=== PATIENT | female | born 1940 | race Caucasian/White ===

== ENCOUNTER 2017-02-17 18:15 | Inpatient (IN) | payer MEDICARE, OTHER ==
[~2017-02-17] VITALS: Ht 162.6 cm; Wt 94.0 kg
[~2017-02-17 18:15] MED LIST: CALCCHW25 CHEW; CITA40TA4 PO; LISI40TA PO; MORP15IN3 PO; MS C30TA5 PO; OMEP20CA2 PO; PERC5TAB12 PO; warfarin PO
[2017-02-17 18:16] VITALS: BP 240/107; PULSE 92; RESP 16; TEMP 99.4; O2SAT 95
[2017-02-17 18:27] VITALS: BP 193/92; PULSE 82
[2017-02-17 21:08] VITALS: BP 197/101; PULSE 80; RESP 20; O2SAT 96
[2017-02-17] MEDS ORDERED: ONDANSETRON HCL 4 MG/2 ML VIAL IV PUSH ONE (21:15)
[2017-02-17] MEDS ORDERED: MORPHINE SULFATE 4 MG/ML INJ IV PUSH ONE ×2 (21:15→23:00)
[2017-02-17] MEDS ORDERED: MORP1TAB26 PO (21:26)
[2017-02-17] MEDS ORDERED: GABA300C5 PO (21:27)
--- NOTE | 2017-02-17 21:27 | RADRPT ---
EXAM DATE/TIME: 02/17/2017 20:57 [facility] COMPARISON: CHEST SINGLE AP, March 25, 2016, 11:15. INDICATIONS : Chest pain and bilateral leg swelling. MEDICAL HISTORY : Hypertension. SURGICAL HISTORY : Hysterectomy. Cervical fusion. ENCOUNTER: Initial ACUITY: 3 days PAIN SCORE: 9/10 LOCATION: Bilateral chest FINDINGS: One lateral basilar airspace disease and small left effusion identified. Cardiomegaly and degenerativ e changes of the spine. ACDF hardware overlies the cervical spine. CONCLUSION: Bilateral airspace disease and small left effusion suspected. Toby Prater MD on February 17, 2017 at 21:26 Board Certified Radiologist. This report was verified electronically.
[2017-02-17] MEDS ORDERED: COUM3TAB PO (21:33)
[2017-02-17] MEDS ORDERED: FUROSEMIDE 40 MG/4 ML VIAL IV PUSH ONE (21:45)
--- NOTE | 2017-02-17 21:49 | PD ---
HPI Chief Complaint: Abdominal Pain Time Seen by Provider: 21:42 Travel History International Travel<30 days: No Contact w/Intl Traveler<30days: No Traveled to known affect area: No History of Present Illness HPI 76-year-old female that presents to the ED for evaluation of lower leg swelling with left worse than right as well as chest discomfort comes and goes and epigastric discomfort. The patient she's had the epigastric and right-sided chest pain on and off for some time. Patient has been worked up for this in the past with no results. Patient currently takes pain medication. Per patient she does have a history of A. fib and takes Coumadin for it. She takes lisinopril for blood pressure. She denies any chest pain at this time. Per patient she does have epigastric pain to gets worse when she takes a deep breath. Per patient is comes and goes. Per patient she's been worked up for this in the past as well with no results. She reports that for the past couple days she's been having swelling of her lower legs. Family members present with here who states that the swelling has worsened for the past couple days. She does have bruising to her left leg which is new. Unclear if she injury it as she does not remember. PFSH Past Medical History Hx Anticoagulant Therapy: Yes (COUMADIN) Depression: Yes Cardiovascular Problems: Yes (HTN/A-FIB) Diabetes: Yes Diminished Hearing: Yes (once in a while) Hypertension: Yes Medical other: Yes (obesity) Tetanus Vaccination: Unknown ?: Not Past Surgical History Hysterectomy: Yes Social History Alcohol Use: No Tobacco Use: No Substance Use: No Allergies-Medications (Allergen,Severity, Reaction): Coded Allergies: Fentanyl (Verified Allergy, Intermediate, anxiety, 10/29/16) Sulfa (Verified Allergy, Intermediate, rash, 10/29/16) Vicodin (Verified Allergy, Intermediate, itching, 10/29/16) Reported Meds & Prescriptions Reported Meds & Active Scripts Active Citalopram (Citalopram Hydrobromide) 40 Mg Tab 40 Mg PO DAILY Lisinopril 40 Mg Tab 40 Mg PO DAILY Reported Coumadin (Warfarin) 3 Mg Tab 3 Mg PO DAILY Gabapentin 300 Mg Cap 300 Mg PO HS Morphine ER (Morphine Sulfate) 60 Mg Tab 60 Mg PO BID Percocet (Oxycodone-Acetaminophen) 5-325 mg Tab 1 Tab PO TID PRN Omeprazole 20 Mg Cap 1 Cap PO DAILY Review of Systems Except as stated in HPI: all other systems reviewed are Neg Physical Exam Narrative GENERAL: SKIN: Warm and dry. HEAD: Atraumatic. Normocephalic. EYES: Pupils equal and round 4 mm reactive to light and accommodation. No scleral icterus. No injection or drainage. ENT: No nasal bleeding or discharge. Mucous membranes pink and moist. Tongue is midline. No uvula deviation. NECK: Trachea midline. No JVD. CARDIOVASCULAR: Regular rate and rhythm. No murmurs, S3, S4. Chest pain is not reproducible with touch. RESPIRATORY: No accessory muscle use. Clear to auscultation. Breath sounds equal bilaterally. GASTROINTESTINAL: Abdomen soft, non-tender, nondistended. Hepatic and splenic margins not palpable. MUSCULOSKELETAL: Extremities without clubbing, cyanosis, or edema. No obvious deformities. Full range of motion of the upper and lower extremities bilaterally. 2+ pulses bilaterally. Patient has 2+ pitting edema in the lower extremities. Left worse than right. She does have a bruise noted to the medial aspect of the left ankle. Nontender. NEUROLOGICAL: Awake and alert. No obvious cranial nerve deficits. Motor grossly within normal limits. Five out of 5 muscle strength in the arms and legs. Normal speech. PSYCHIATRIC: Appropriate mood and affect; insight and judgment normal. Data Data Last Documented VS Vital Signs Date Time Temp Pulse Resp B/P Pulse Ox O2 Delivery O2 Flow Rate FiO2 02/17/17 21:08 80 20 197/101 96 Room Air 02/17/17 18:16 99.4 Orders Electrocardiogram (02/17/17 21:01) Complete Blood Count With Diff (02/17/17 21:01) Comprehensive Metabolic Panel (02/17/17 21:01) Ckmb (Isoenzyme) Profile (02/17/17 21:01) Troponin I (02/17/17 21:01) B-Type Natriuretic Peptide (02/17/17 21:01) Prothrombin Time / Inr (Pt) (02/17/17 21:01) Act Partial Throm Time (Ptt) (02/17/17 21:01) Lipase (02/17/17 21:01) Urinalysis - C+S If Indicated (02/17/17 21:) Thyroid Stimulating Hormone (02/17/17 21:01) Chest, Single Ap (02/17/17 21:01) Iv Access Insert/Monitor (02/17/17 21:01) Ecg Monitoring (02/17/17 21:01) Oximetry (02/17/17 21:01) Us Leg Venous Doppler Bilat (02/17/17 21:01) Morphine Inj (Morphine Inj) (02/17/17 21:15) Ondansetron Inj (Zofran Inj) (02/17/17 21:15) Furosemide Inj (Lasix Inj) (02/17/17 21:45) Ct Abd/Pel W Iv Contrast(Rout) (02/17/17 22:31) Potassium Chloride (Kcl) (02/18/17 09:00) Ct Pulmonary Angiogram (02/17/17 ) Labs Laboratory Tests Test 02/17/17 02/17/17 21:30 21:37 Urine Color LIGHT-YELLOW Urine Turbidity CLEAR Urine pH 6.5 Urine Specific [place] 1.007 Urine Protein NEG mg/dL Urine Glucose (UA) NEG mg/dL Urine Ketones NEG mg/dL Urine Occult Blood TRACE Urine Nitrite NEG Urine Bilirubin NEG Urine Urobilinogen LESS THAN 2.0 MG/DL Urine Leukocyte Esterase SMALL Urine RBC 4 /hpf Urine WBC 3 /hpf Urine Squamous Epithelial <1 /hpf Cells Urine Bacteria RARE /hpf Microscopic Urinalysis Comment CULT NOT INDICATED White Blood Count 6.3 TH/MM3 Red Blood Count 3.55 MIL/MM3 Hemoglobin 11.1 GM/DL Hematocrit 33.2 % Mean Corpuscular Volume 93.5 FL Mean Corpuscular Hemoglobin 31.4 PG Mean Corpuscular Hemoglobin 33.6 % Concent Red Cell Distribution Width 15.5 % Platelet Count 222 TH/MM3 Mean Platelet Volume 9.0 FL Neutrophils (%) (Auto) 60.0 % Lymphocytes (%) (Auto) 27.9 % Monocytes (%) (Auto) 7.6 % Eosinophils (%) (Auto) 2.7 % Basophils (%) (Auto) 1.8 % Neutrophils # (Auto) 3.8 TH/MM3 Lymphocytes # (Auto) 1.8 TH/MM3 Monocytes # (Auto) 0.5 TH/MM3 Eosinophils # (Auto) 0.2 TH/MM3 Basophils # (Auto) 0.1 TH/MM3 CBC Comment DIFF FINAL Differential Comment Prothrombin Time 21.1 SEC Prothromb Time International 1.9 RATIO Ratio Activated Partial 35.7 SEC Thromboplast Time Sodium Level 144 MEQ/L Potassium Level 2.8 MEQ/L Chloride Level 109 MEQ/L Carbon Dioxide Level 29.6 MEQ/L Anion Gap 5 MEQ/L Blood Urea Nitrogen 5 MG/DL Creatinine 0.70 MG/DL Estimat Glomerular Filtration 81 ML/MIN Rate Random Glucose 103 MG/DL Calcium Level 8.9 MG/DL Total Bilirubin 1.3 MG/DL Aspartate Amino Transf 20 U/L (AST/SGOT) Alanine Aminotransferase 14 U/L (ALT/SGPT) Alkaline Phosphatase 88 U/L Total Creatine Kinase 89 U/L Troponin I LESS THAN 0.02 NG/ML B-Type Natriuretic Peptide 193 PG/ML Total Protein 6.9 GM/DL Albumin 3.5 GM/DL Lipase 39 U/L Thyroid Stimulating Hormone 1.010 uIU/ML 3rd Gen [facility] Medical Decision Making Medical Screen Exam Complete: Yes Emergency Medical Condition: Yes Medical Record Reviewed: Yes Interpretation(s) CBC & BMP Diagram 02/17/17 21:37 LFTS WNL UA negative Lipase negative BNP in the 100s Last Impressions Lower Extremity Ultrasound 02/17/172100 Signed Impressions: Service Date/Time: Friday, February 17, 2017 21:56 - CONCLUSION: 1. No definite evidence for DVT bilaterally. The posterior tibial vein on the left compresses fully however there is no documented color-flow. Toby Prater MD Chest X-Ray 02/17/172100 Signed Impressions: Service Date/Time: Friday, February 17, 2017 20:57 - CONCLUSION: Bilateral airspace disease and small left effusion suspected. Toby Prater MD Differential Diagnosis Chronic pain versus a typical chest pain versus atrial fibrillation versus CHF versus DVT versus pitting edema versus normal exam Narrative Course 76-year-old female that presents to the ED for evaluation of chest pain and lower leg edema. Patient was properly examined and was found to have signs and symptoms which appear to be consistent with possible CHF. She does have a history of this in the past. She does not take any Lasix. She does have a bruise to her left leg and left legs. On the right. Concern for DVT present. She does take Coumadin however. Labs and imaging were ordered. She was given pain medication here. Imaging still pending at the writing of this note and case signed out to my attending pending dispo. Lloyd Blair Feb 17, 2017 21:49
[2017-02-17 21:59] LABS: BACTERIA, URINE RARE /hpf; BLOOD, URINE TRACE (NEG); COMMENT (UR) CULT NOT INDICATED; CULTURE IF INDICATED CULT NOT INDICATED; GLUCOSE,URINE NEG (NEG); KETONE, URINE NEG (NEG); NITRITE,URINE NEG (NEG); PH, URINE 6.5 (5.0-8.5); SQUAMOUS EPITHELIAL CELL URINE <1 /hpf (0-5); URINE COLOR LIGHT-YELLOW (YELLW/STRAW)
[2017-02-17 21:59] LABS: AUTOMATED NEUTROPHIL # 3.8 TH/MM3 (1.8-7.7); BASOPHIL # 0.1 TH/MM3 (0-0.2); BASOPHIL % 1.8 % (0.0-2.0); EOSINOPHIL # 0.2 TH/MM3 (0-0.4); EOSINOPHIL % 2.7 % (0.0-4.0); HEMATOCRIT 33.2 % (35.0-46.0); HEMO FLAGS DIFF FINAL; LYMPH % 27.9 % (9.0-44.0); LYMPHOCYTE # 1.8 TH/MM3 (1.0-4.8); MEAN CELL VOLUME 93.5 FL (80.0-100.0); MEAN CORPUSCULAR HEMOGLOBIN 31.4 PG (27.0-34.0); MEAN CORPUSCULAR HGB CONC 33.6 % (32.0-36.0); MONO % 7.6 % (0.0-8.0); PLATELET COUNT 222 TH/MM3 (150-450); RED BLOOD COUNT 3.55 MIL/MM3 (4.00-5.30); RED CELL DISTRIBUTION WIDTH 15.5 % (11.6-17.2); WHITE BLOOD COUNT 6.3 TH/MM3 (4.0-11.0)
[2017-02-17 22:15] LABS: APTT (PATIENT) 35.7 SEC (24.3-30.1); INTERNATIONAL NORMALIZED RATIO 1.9 RATIO; PROTHROMBIN TIME - PATIENT 21.1 SEC (9.8-11.6)
--- NOTE | 2017-02-17 22:28 | RADRPT ---
EXAM DATE/TIME: 02/17/2017 21:56 [facility] COMPARISON: No previous studies available for comparison. INDICATIONS : Bilateral leg swelling. MEDICAL HISTORY : Afib. Diabetic. Hypertension. SURGICAL HISTORY : Bilateral knee.surgery. Neck surgery. Hysterectomy. ENCOUNTER: Initial ACUITY: 4 - 6 days PAIN SCORE: 9/10 LOCATION: Bilateral leg. TECHNIQUE: Venous ultrasound of the left and right leg was performed from the inguinal ligament to the proximal calf. Real-time, color Doppler and spectral tracing, compression and augmentation techniques were us ed. FINDINGS: RIGHT LEG: There is normal compressibility of the deep venous system from the inguinal region to the proximal ca lf. No echogenic clot is seen in the lumen of the common femoral, femoral, popliteal, and posterior tibial veins. There is a normal response of the venous system to proximal and distal augmentation an d respiration. LEFT LEG: There is normal compressibility of the deep venous system from the inguinal region to the proximal ca lf. No echogenic clot is seen in the lumen of the common femoral, femoral, popliteal, and posterior tibial veins. There is a normal response of the venous system to proximal and distal augmentation an d respiration. There is no flow visualized in the posterior tibial vein however it does fully compre ss. CONCLUSION: 1. No definite evidence for DVT bilaterally. The posterior tibial vein on the left compresses fully h owever there is no documented color-flow. Toby Prater MD on February 17, 2017 at 22:25 Board Certified Radiologist. This report was verified electronically.
[2017-02-17 22:37] LABS: ALKALINE PHOSPHATASE 88 U/L (45-117); ALT (GPT) 14 U/L (10-53); ANION GAP 5 MEQ/L (5-15); AST (GOT) 20 U/L (15-37); BICARBONATE 29.6 MEQ/L (21.0-32.0); BLOOD UREA NITROGEN 5 MG/DL (7-18); CHLORIDE 109 MEQ/L (98-107); CREATINE KINASE 89 U/L (26-192); GLOMERULAR FILTRATION RATE 81 ML/MIN (>89); SODIUM (NA) 144 MEQ/L (136-145); TOTAL BILIRUBIN ADULT 1.3 MG/DL (0.2-1.0)
[2017-02-17 22:40] LABS: POTASSIUM 2.8 MEQ/L (3.5-5.1)
--- NOTE | 2017-02-17 23:06 | PD ---
Data Data Last Documented VS Vital Signs Date Time Temp Pulse Resp B/P Pulse Ox O2 Delivery O2 Flow Rate FiO2 02/17/17 21:08 80 20 197/101 96 Room Air 02/17/17 18:16 99.4 Orders Electrocardiogram (02/17/17 21:01) Complete Blood Count With Diff (02/17/17 21:01) Comprehensive Metabolic Panel (02/17/17 21:01) Ckmb (Isoenzyme) Profile (02/17/17 21:01) Troponin I (02/17/17 21:) B-Type Natriuretic Peptide (02/17/17 21:01) Prothrombin Time / Inr (Pt) (02/17/17 21:01) Act Partial Throm Time (Ptt) (02/17/17 21:01) Lipase (02/17/17 21:) Urinalysis - C+S If Indicated (02/17/17 21:01) Thyroid Stimulating Hormone (02/17/17 21:01) Chest, Single Ap (02/17/17 21:01) Iv Access Insert/Monitor (02/17/17 21:01) Ecg Monitoring (02/17/17 21:01) Oximetry (02/17/17 21:01) Us Leg Venous Doppler Bilat (02/17/17 21:01) Morphine Inj (Morphine Inj) (02/17/17 21:15) Ondansetron Inj (Zofran Inj) (02/17/17 21:15) Furosemide Inj (Lasix Inj) (02/17/17 21:45) Ct Abd/Pel W Iv Contrast(Rout) (02/17/17 22:31) Potassium Chloride (Kcl) (02/18/17 09:00) Morphine Inj (Morphine Inj) (02/17/17 23:00) Iohexol 350 Inj (Omnipaque 350 Inj) (02/17/17 23:07) Potassium Chloride (Kcl) (02/18/17 00:00) Admit Order (Ed Use Only) (02/18/17 00:44) Labs Laboratory Tests Test 02/17/17 02/17/17 21:30 21:37 Urine Color LIGHT-YELLOW Urine Turbidity CLEAR Urine pH 6.5 Urine Specific [place] 1.007 Urine Protein NEG mg/dL Urine Glucose (UA) NEG mg/dL Urine Ketones NEG mg/dL Urine Occult Blood TRACE Urine Nitrite NEG Urine Bilirubin NEG Urine Urobilinogen LESS THAN 2.0 MG/DL Urine Leukocyte Esterase SMALL Urine RBC 4 /hpf Urine WBC 3 /hpf Urine Squamous Epithelial <1 /hpf Cells Urine Bacteria RARE /hpf Microscopic Urinalysis Comment CULT NOT INDICATED White Blood Count 6.3 TH/MM3 Red Blood Count 3.55 MIL/MM3 Hemoglobin 11.1 GM/DL Hematocrit 33.2 % Mean Corpuscular Volume 93.5 FL Mean Corpuscular Hemoglobin 31.4 PG Mean Corpuscular Hemoglobin 33.6 % Concent Red Cell Distribution Width 15.5 % Platelet Count 222 TH/MM3 Mean Platelet Volume 9.0 FL Neutrophils (%) (Auto) 60.0 % Lymphocytes (%) (Auto) 27.9 % Monocytes (%) (Auto) 7.6 % Eosinophils (%) (Auto) 2.7 % Basophils (%) (Auto) 1.8 % Neutrophils # (Auto) 3.8 TH/MM3 Lymphocytes # (Auto) 1.8 TH/MM3 Monocytes # (Auto) 0.5 TH/MM3 Eosinophils # (Auto) 0.2 TH/MM3 Basophils # (Auto) 0.1 TH/MM3 CBC Comment DIFF FINAL Differential Comment Prothrombin Time 21.1 SEC Prothromb Time International 1.9 RATIO Ratio Activated Partial 35.7 SEC Thromboplast Time Sodium Level 144 MEQ/L Potassium Level 2.8 MEQ/L Chloride Level 109 MEQ/L Carbon Dioxide Level 29.6 MEQ/L Anion Gap 5 MEQ/L Blood Urea Nitrogen 5 MG/DL Creatinine 0.70 MG/DL Estimat Glomerular Filtration 81 ML/MIN Rate Random Glucose 103 MG/DL Calcium Level 8.9 MG/DL Total Bilirubin 1.3 MG/DL Aspartate Amino Transf 20 U/L (AST/SGOT) Alanine Aminotransferase 14 U/L (ALT/SGPT) Alkaline Phosphatase 88 U/L Total Creatine Kinase 89 U/L Troponin I LESS THAN 0.02 NG/ML B-Type Natriuretic Peptide 193 PG/ML Total Protein 6.9 GM/DL Albumin 3.5 GM/DL Lipase 39 U/L Thyroid Stimulating Hormone 1.010 uIU/ML 3rd Gen [facility] Medical Record Reviewed: Yes Supervised Visit with CHENCHO: No Interpretation(s) Last Impressions Abdomen/Pelvis CT 02/17/172230 Signed Impressions: Service Date/Time: Friday, February 17, 2017 22:59 - CONCLUSION: 1. Small bilateral pleural effusions with bibasilar atelectasis. 2. Small hiatal hernia the GE junction. 3. Homogeneous well-defined 2.5 cm cyst along the mid body of the pancreas. This could be an old pseudocyst. No current inflammatory changes are seen associated with the pancreas. 4. Scattered diverticulosis of the sigmoid colon without inflammatory changes. 5. A few mildly dilated loops of small bowel with fluid and air. This is nonspecific and may represent an ileus. Joe Zheng MD Lower Extremity Ultrasound 02/17/172100 Signed Impressions: Service Date/Time: Friday, February 17, 2017 21:56 - CONCLUSION: 1. No definite evidence for DVT bilaterally. The posterior tibial vein on the left compresses fully however there is no documented color-flow. Toby Prater MD Chest X-Ray 02/17/172100 Signed Impressions: Service Date/Time: Friday, February 17, 2017 20:57 - CONCLUSION: Bilateral airspace disease and small left effusion suspected. Toby Prater MD Narrative Course During the course of the patients emergency department visit, the patients history, examination, and differential diagnosis were reviewed with the patient. The patient had IV access obtained and blood work sent for analysis. The patient's case was checked out to me by Hugh, the physician housekeeping assistant, at the conclusion of his shift. Please see his complete history and physical. The patient had an ECG done on arrival that shows atrial fibrillation with rate control heart rate of [address] segment elevation. The patient was initially provided morphine 4 mg IV for pain, Zofran 4 mg IV for nausea. The patient was given Lasix 40 mg IV, potassium chloride 40 mEq by mouth 1. The patients laboratory studies were reviewed and remarkable for a white count of 6.3, hemoglobin 11.1, platelets 222 with a normal differential, CMP is remarkable for a potassium of 2.8, chloride 109, BUNs 5, GFR of 81, total bilirubin 1.3, CPK 89, troponin I less than 0.02, lipase 39, TSH 1.01, BNP 193, INR 1.9. The patient is chronically anticoagulated on Coumadin for atrial fibrillation. Radiology studies were reviewed and remarkable for a chest x-ray that reveals bilateral airspace disease and small left effusions suspected. Ultrasound reveals no evidence of DVT. CT scan of the abdomen and pelvis shows evidence of an ileus, 2.5 cm cyst on the pancreas without any surrounding irritation or inflammation, bilateral pleural effusions with bibasilar atelectasis. The patients results were discussed with the patient, including the plan of care. I explained that further testing and/ or monitoring is indicated based on the patients history, examination, and/ or laboratory findings. Therefore, I recommended admission for additional evaluation. The patient expressed understanding and was agreeable with this plan. The patient was admitted to the hospital in stable condition and sent to a bed under the care of .the [facility] Hospitalist service. Physician Communication Physician Communication The patient's case was discussed with Dr. Ramirez who did agree to admit the patient for further evaluation and treatment at this time. Diagnosis Primary Impression: Pleural effusion Additional Impressions: Hypokalemia Ileus Admitting Information Admitting Physician Requests: Admit Kaye Navarrete MD Feb 17, 2017 23:06
[2017-02-17] MEDS ORDERED: IOHEXOL 350 MG/ML 10 ML VIAL (for RAD DIAG) IV ONE (23:07)
--- NOTE | 2017-02-17 23:52 | RADRPT ---
EXAM DATE/TIME: 02/17/2017 22:59 [facility] COMPARISON: No previous studies available for comparison. INDICATIONS : Epigastric pain. IV CONTRAST: 96 cc Omnipaque 350 (iohexol) IV ORAL CONTRAST: No oral contrast ingested. RADIATION DOSE: 16.49 CTDIvol (mGy) MEDICAL HISTORY : Cardiovascular disease. Hypertension. Diabetes. SURGICAL HISTORY : Hysterectomy. ENCOUNTER: Initial ACUITY: 1 day PAIN SCALE: 4/10 LOCATION: Epigastric TECHNIQUE: Volumetric scanning of the abdomen and pelvis was performed. Using automated exposure control and ad justment of the mA and/or kV according to patient size, radiation dose was kept as low as reasonably achievable to obtain optimal diagnostic quality images. DICOM format image data is available electro nically for review and comparison. FINDINGS: LOWER LUNGS: Small bilateral effusions with some bibasilar atelectasis. Moderate diffuse cardiomegaly. Small hiata l hernia. LIVER: Homogeneous density without lesion. There is no dilation of the biliary tree. No gallbladder, surgi krysten removed. Common bile duct is at the upper limits of normal 1.1 cm status post cholecystectomy. This is most likely from reservoir fact.. SPLEEN: Normal size without lesion. PANCREAS: Within normal limits. There is a 2.5 cm well-defined cyst along the mid body of the pancreas. No infl ammatory changes. KIDNEYS: Normal in size and shape. There is no mass, stone or hydronephrosis. ADRENAL GLANDS: Within normal limits. VASCULAR: There is no aortic aneurysm. Atherosclerotic changes. BOWEL/MESENTERY: The stomach, small bowel, and colon demonstrate no acute abnormality. There is some mild nonspecific dilatation of the small bowel with fluid and air. There is no free intraperitoneal air or fluid. Scat tered diverticulosis of the sigmoid colon without inflammatory changes. Appendix is nondilated. There is stool throughout the colon. ABDOMINAL WALL: Within normal limits. RETROPERITONEUM: There is no lymphadenopathy. BLADDER: No wall thickening or mass. REPRODUCTIVE: Within normal limits. INGUINAL: There is no lymphadenopathy or hernia. MUSCULOSKELETAL: Within normal limits for patient age. Evidence of previous lumbar spinal surgery with fusion. Diffuse degenerative changes. CONCLUSION: 1. Small bilateral pleural effusions with bibasilar atelectasis. 2. Small hiatal hernia the GE junction. 3. Homogeneous well-defined 2.5 cm cyst along the mid body of the pancreas. This could be an old pseu docyst. No current inflammatory changes are seen associated with the pancreas. 4. Scattered diverticulosis of the sigmoid colon without inflammatory changes. 5. A few mildly dilated loops of small bowel with fluid and air. This is nonspecific and may represen t an ileus. Joe Zheng MD on February 17, 2017 at 23:43 Board Certified Radiologist. This report was verified electronically.
[2017-02-18] VITALS (12 sets, daily range): BP systolic 106–201; BP diastolic 55–98; PULSE 70–89; RESP 13–18; TEMP 96.8–99.5; O2SAT 93–98
[2017-02-18] MEDS ORDERED: NALOXONE HCL 0.4 MG/ML AMP IV PRN (00:45)
[2017-02-18] MEDS ORDERED: POTASSIUM CHLORIDE 20 MEQ CONTROLLED RELEASE TAB PO ONE ×3 (00:45→13:00)
[2017-02-18] MEDS ORDERED: hydrALAZINE HCL 20 MG/ML VIAL IV PUSH PRN (02:00)
[2017-02-18] MEDS: MORPHINE SULFATE 4 MG/ML INJ IV PUSH PRN ×3 (03:38→20:55)
--- NOTE | 2017-02-18 05:09 | HHI.HP ---
HPI Service [facility] Primary Care Physician Kavya Pro MD Admission Diagnosis Chest pain, pulmonary edema, Ileus, hypokalemia Diagnoses: Chief Complaint: right chest pain, LLE swelling Travel History International Travel<30 Days: No Contact w/Intl Traveler <30 Da: No Traveled to Known Affected Are: No History of Present Illness Written by SAKINA Hobbs acting as scribe for [James] on 02/18/17 at 05: 07. 76 y/o female with a history of Afib, chronic back pain, and HTN presented to the ED with complaints of Right sided chest pain and LLE swelling. She states the pain and swelling has been going on for the last 2-3 weeks and slightly getting worse. She denies any trauma or recent falls. She does complain of lightheadedness every once in a while and sob with exertion. She denies a need to sleep on extra pillows, she only uses one and is able to lie flat. She denies any history of CHF, but she states she has been told she has 3 leaky valves. Denies any fever, chills, cough, sputum production, diarrhea, or dysuria. Review of Systems Except as stated in HPI: all other systems reviewed are Neg Past Family Social History Past Medical History Afib Chronic back pain HTN 3 leaky valves Past Surgical History Back surgery Bilateral knee replacement Esophageal dilation Hysterectomy Reported Medications Reported Meds & Active Scripts Active Citalopram (Citalopram Hydrobromide) 40 Mg Tab 40 Mg PO DAILY Lisinopril 40 Mg Tab 40 Mg PO DAILY Reported Coumadin (Warfarin) 3 Mg Tab 3 Mg PO DAILY Gabapentin 300 Mg Cap 300 Mg PO HS Morphine ER (Morphine Sulfate) 60 Mg Tab 60 Mg PO BID Percocet (Oxycodone-Acetaminophen) 5-325 mg Tab 1 Tab PO TID PRN Omeprazole 20 Mg Cap 1 Cap PO DAILY Allergies: Coded Allergies: Fentanyl (Verified Allergy, Intermediate, anxiety, 10/29/16) Sulfa (Verified Allergy, Intermediate, rash, 10/29/16) Vicodin (Verified Allergy, Intermediate, itching, 10/29/16) Active Ordered Medications Current Medications Medications (Trade) Dose Ordered Sig/Rose Route Start Time Stop Time Status Last Admin (NS Flush) 2 ml UNSCH PRN IV FLUSH 02/18/17 00:45 (NS Flush) 2 ml BID IV FLUSH 02/18/17 09:00 (Narcan Inj) 0.4 mg UNSCH PRN IV 02/18/17 00:45 (Reglan Inj) 5 mg Q8HR IV PUSH 02/18/17 06:00 (Apresoline Inj) 10 mg Q30M PRN IV PUSH 02/18/17 02:00 02/18/17 02:25 (Morphine Inj) 2 mg Q4H PRN IV PUSH 02/18/17 02:00 02/18/17 03:38 Family History Patient denies any family history Social History Denies any tobacco, alcohol or illicit drug use. Physical Exam Vital Signs Vital Signs Date Time Temp Pulse Resp B/P Pulse Ox O2 Delivery O2 Flow Rate FiO2 02/18/17 04:22 96.8 84 18 134/62 94 02/18/17 03:14 Room Air 02/18/17 03:12 88 18 142/67 97 Room Air 02/18/17 02:20 84 18 167/84 98 Room Air 02/18/17 01:57 201/98 02/17/17 21:08 80 20 197/101 96 Room Air 02/17/17 18:27 82 193/92 02/17/17 18:16 99.4 92 16 240/107 95 Room Air Physical Exam GENERAL: This is a well-nourished, well-developed patient, in no apparent distress. SKIN: No rashes, ecchymoses or lesions. Cool and dry. HEAD: Atraumatic. Normocephalic. EYES: Pupils equal round and reactive. Extraocular motions intact. ENT: Nose without bleeding, purulent drainage or septal hematoma. Airway patent. NECK: Trachea midline. No JVD or lymphadenopathy. CARDIOVASCULAR: Regular rate and rhythm without murmurs, gallops, or rubs. RESPIRATORY: Clear to auscultation. Breath sounds equal bilaterally. No wheezes , rales, or rhonchi. GASTROINTESTINAL: Abdomen soft, non-tender, nondistended. No hepato-splenomegaly , or palpable masses. No guarding. MUSCULOSKELETAL: LLE +2 pitting edema, RLE +1 non pitting edema. No joint tenderness, effusion, or edema noted. No calf tenderness. NEUROLOGICAL: Awake and alert. Motor and sensory grossly within normal limits. Normal speech. Laboratory Laboratory Tests Test 02/17/17 02/17/17 02/18/17 21:30 21:37 03:07 Urine Color LIGHT-YELLOW Urine Turbidity CLEAR Urine pH 6.5 Urine Specific [place] 1.007 Urine Protein NEG Urine Glucose (UA) NEG Urine Ketones NEG Urine Occult Blood TRACE Urine Nitrite NEG Urine Bilirubin NEG Urine Urobilinogen LESS THAN 2.0 Urine Leukocyte Esterase SMALL Urine RBC 4 Urine WBC 3 Urine Squamous Epithelial <1 Cells Urine Bacteria RARE Microscopic Urinalysis Comment CULT NOT INDICATED White Blood Count 6.3 Red Blood Count 3.55 Hemoglobin 11.1 Hematocrit 33.2 Mean Corpuscular Volume 93.5 Mean Corpuscular Hemoglobin 31.4 Mean Corpuscular Hemoglobin 33.6 Concent Red Cell Distribution Width 15.5 Platelet Count 222 Mean Platelet Volume 9.0 Neutrophils (%) (Auto) 60.0 Lymphocytes (%) (Auto) 27.9 Monocytes (%) (Auto) 7.6 Eosinophils (%) (Auto) 2.7 Basophils (%) (Auto) 1.8 Neutrophils # (Auto) 3.8 Lymphocytes # (Auto) 1.8 Monocytes # (Auto) 0.5 Eosinophils # (Auto) 0.2 Basophils # (Auto) 0.1 CBC Comment DIFF FINAL Differential Comment Prothrombin Time 21.1 Prothromb Time International 1.9 Ratio Activated Partial 35.7 Thromboplast Time Sodium Level 144 Potassium Level 2.8 Chloride Level 109 Carbon Dioxide Level 29.6 Anion Gap 5 Blood Urea Nitrogen 5 Creatinine 0.70 Estimat Glomerular Filtration 81 Rate Random Glucose 103 Calcium Level 8.9 Total Bilirubin 1.3 Aspartate Amino Transf 20 (AST/SGOT) Alanine Aminotransferase 14 (ALT/SGPT) Alkaline Phosphatase 88 Total Creatine Kinase 89 98 Troponin I LESS THAN 0.02 0.02 B-Type Natriuretic Peptide 193 Total Protein 6.9 Albumin 3.5 Lipase 39 Thyroid Stimulating Hormone 1.010 3rd Gen Result Diagram: 02/17/17213602/17/172136 Imaging Last Impressions Abdomen/Pelvis CT 02/17/172230 Signed Impressions: Service Date/Time: Friday, February 17, 2017 22:59 - CONCLUSION: 1. Small bilateral pleural effusions with bibasilar atelectasis. 2. Small hiatal hernia the GE junction. 3. Homogeneous well-defined 2.5 cm cyst along the mid body of the pancreas. This could be an old pseudocyst. No current inflammatory changes are seen associated with the pancreas. 4. Scattered diverticulosis of the sigmoid colon without inflammatory changes. 5. A few mildly dilated loops of small bowel with fluid and air. This is nonspecific and may represent an ileus. Joe Zheng MD Lower Extremity Ultrasound 02/17/172100 Signed Impressions: Service Date/Time: Friday, February 17, 2017 21:56 - CONCLUSION: 1. No definite evidence for DVT bilaterally. The posterior tibial vein on the left compresses fully however there is no documented color-flow. Toby Prater MD Chest X-Ray 02/17/172100 Signed Impressions: Service Date/Time: Friday, February 17, 2017 20:57 - CONCLUSION: Bilateral airspace disease and small left effusion suspected. Toby Prater MD Assessment and Plan Problem List: (1) Pleural effusion ICD Code: J90 Status: Acute (2) CHF (congestive heart failure) ICD Code: I50.9 Status: Acute (3) Hypokalemia ICD Code: E87.6 Status: Acute (4) Hypertension ICD Code: I10 Status: Chronic (5) Atrial fibrillation ICD Code: I48.91 Status: Chronic Assessment and Plan 76 y/o female with a history of Afib, chronic back pain, and HTN presented to the ED with complaints of Right sided chest pain and LLE swelling. Pleural effusion, patient with dyspnea with exertion and right sided chest pain , R/O ACS, suspect due to new onset CHF Abdominal CT reviewed and shows Small bilateral pleural effusions with bibasilar atelectasis. Small hiatal hernia the GE junction. Homogeneous well- defined 2.5 cm cyst along the mid body of the pancreas. This could be an old pseudocyst. No current inflammatory changes are seen associated with the pancreas. Scattered diverticulosis of the sigmoid colon without inflammatory changes. -Troponin negative x 2, third set pending -Monitor telemetry -Morphine IV for pain management New onset CHF, BNP 193, patient with BLE swelling Lower extremity US negative for DVT -Consult cardiology for recommendation -Lasix 40 mg given in ED, cont Lasix 20mg BID -2D echo ordered Hypokalemia, potassium 2.8 -Supplementation given, 20meq ordered daily -BMP in AM, trend and replace as needed HTN, chronic, controlled -Resume home medication Lisinopril AFIB, chronic, controlled -Resume home medication Coumadin DVT prophylaxis: Coumadin Discussed Condition With Patient, RN and ED physician Alissa Mitchell Feb 18, 2017 05:09
[2017-02-18] MEDS ORDERED: ACETAMINOPHEN 325 MG TAB PO ONE (05:15)
[2017-02-18] MEDS ORDERED: diphenhydrAMINE HCL 25 MG CAP PO ONE (05:15)
[2017-02-18] MEDS: METOCLOPRAMIDE HCL 10 MG/2 ML VIAL IV PUSH SCH ×3 (05:25→20:55)
--- NOTE | 2017-02-18 07:42 | MB ---
cc: JHONY FARLEY MD DATE OF CONSULTATION 02/18/2017 REASON FOR CONSULTATION CHF. HISTORY OF PRESENT ILLNESS Ms. Lou is a 76-year-old female who does have a history of hypertension and atrial fibrillation. She presented with multiple complaints of lower extremity edema and right-sided pain. The patient is somewhat of a vague historian but indicates that she has been having several months of right and left arm pain. She indicates that this is random and has been quite severe on the right side. She indicates her right arm and right upper quadrant have had intermittent severe pain. She also reports 2-3 weeks of shortness of breath. She has had unilateral lower extremity edema on the left. PAST MEDICAL/SURGICAL HISTORY Significant for - 1. Hypertension. 2. Atrial fibrillation. 3. Back surgery. 4. Knee replacement. 5. Hysterectomy. 6. Esophageal dilatation. CURRENT MEDICATIONS 1. Citalopram. 2. Lisinopril 40 mg a day. 3. Coumadin. 4. Gabapentin. 5. Morphine. 6. Percocet. 7. Omeprazole. ALLERGIES FENTANYL. SULFA. VICODIN. SOCIAL HISTORY The patient does not drink or smoke. FAMILY HISTORY Negative for CAD. REVIEW OF SYSTEMS Except as mentioned in the HPI, all 12 systems are negative. PHYSICAL EXAMINATION VITAL SIGNS: Initial blood pressure was 240/107. Currently it is with 134/62 with a temperature of 96.8, 84, 18. IN GENERAL: She is a morbidly obese female who is in no apparent distress. NECK: Her neck is free from JVD. LUNGS: The lungs are bilaterally clear to auscultation. CARDIOVASCULAR EXAMINATION: She has an irregularly irregular rhythm. No rubs or gallops are appreciated. ABDOMEN: The abdomen is soft. EXTREMITIES: The right lower extremity is free from edema. The left does have 1+ pedal edema. IMAGING STUDIES Lower extremity ultrasound was negative for DVT. Chest x-ray shows bilateral air space disease and possible left pleural effusion. CT shows small bilateral effusions with atelectasis. There is also a nonspecific dilation of the small bowel which may represent ileus. LAB VALUES Significant for a potassium of 2.8. Troponin of less than 0.02. BNP of 193. IMPRESSIONS Acute diastolic heart failure - The patient presented with marked hypertension with shortness of breath, unilateral edema and effusions. The patient obviously needs to have BP control. An echocardiogram has been requested. I would like to diurese her ad then hopefully get her off of the Lasix. A beta-rekha will be added. Atrial fibrillation - The patient does have reasonable rate control. Thus this does not appear to be a contributing factor at least at this point. Right-sided pain - This will be worked up by the primary team and does not appear to have a cardiac component. She specifically denies any chest pain to me. Jhony Farley M.D. MICHELLE/SSB /7:03 AM /7:32 AM
--- NOTE | 2017-02-18 08:42 | EKG ---
Date Performed: 02/18/2017 Time Performed: 04:01:56 PTAGE: 76 years EKG: ATRIAL FIBRILLATION MODERATE ST DEPRESSION ABNORMAL ECG PREVIOUS TRACING : 02/17/2017 21.51 DOCTOR: Juwan Kaiser Interpretating Date/Time 02/18/2017 08:40:51
--- NOTE | 2017-02-18 08:55 | EKG ---
Date Performed: 02/17/2017 Time Performed: 21:51:15 PTAGE: 76 years EKG: ATRIAL FIBRILLATION POSSIBLE ANTERIOR MYOCARDIAL INFARCTION ABNORMAL RHYTHM ECG PREVIOUS TRACING : 03/25/2016 16.31 DOCTOR: uJwan Kaiser Interpretating Date/Time 02/18/2017 08:54:36
[2017-02-18] MEDS ORDERED: POTASSIUM CHLORIDE 20 MEQ CONTROLLED RELEASE TAB PO SCH (09:00)
[2017-02-18] MEDS: SODIUM CHLORIDE 0.9% FLUSH 10 ML FLUSH IV FLUSH SCH ×2 (09:52→20:56)
[2017-02-18] MEDS: POTASSIUM CHLORIDE 20 MEQ CONTROLLED RELEASE TAB PO SCH (09:53)
[2017-02-18] MEDS: LISINOPRIL 20 MG TAB PO SCH (09:53)
[2017-02-18] MEDS: FUROSEMIDE 20 MG TAB PO SCH ×2 (09:53→17:49)
[2017-02-18] MEDS: PANTOPRAZOLE SOD 20 MG DELAYED RELEASE TAB PO SCH (09:54)
[2017-02-18] MEDS: CITALOPRAM HYDROBROMIDE 40 MG TAB PO SCH (09:54)
[2017-02-18] MEDS: CARVEDILOL 3.125 MG TAB PO SCH ×2 (09:54→20:56)
[2017-02-18 10:19] LABS: POTASSIUM 3.6 MEQ/L (3.5-5.1)
[2017-02-18 12:08] LABS: BICARBONATE 28.8 MEQ/L (21.0-32.0); POTASSIUM 3.6 MEQ/L (3.5-5.1)
[2017-02-18] MEDS: SODIUM CHLORIDE 0.9% FLUSH 10 ML FLUSH IV FLUSH PRN (13:48)
[2017-02-18] MEDS: WARFARIN SOD 3 MG TAB PO SCH (17:49)
[2017-02-18] MEDS: MORPHINE SULFATE 60 MG CONTROLLED RELEASE TAB PO SCH ×2 (17:49→20:47)
[2017-02-18] MEDS ORDERED: GABAPENTIN 300 MG CAP PO SCH (21:00)
[2017-02-19] VITALS (7 sets, daily range): BP systolic 106–136; BP diastolic 58–75; PULSE 59–79; RESP 17–20; TEMP 97.5–98.7; O2SAT 91–96
[2017-02-19] MEDS: METOCLOPRAMIDE HCL 10 MG/2 ML VIAL IV PUSH SCH ×2 (05:33→13:07)
[2017-02-19] MEDS: SODIUM CHLORIDE 0.9% FLUSH 10 ML FLUSH IV FLUSH PRN (05:34)
[2017-02-19 07:35] LABS: BICARBONATE 30.2 MEQ/L (21.0-32.0); POTASSIUM 3.1 MEQ/L (3.5-5.1)
[2017-02-19] MEDS ORDERED: POTASSIUM CHLORIDE 20 MEQ CONTROLLED RELEASE TAB PO ONE (07:45)
--- NOTE | 2017-02-19 08:27 | PD.CARD.PN ---
Subjective Subjective Remarks PT without complaints Objective Medications Current Medications Medications (Trade) Dose Ordered Sig/Rose Route Start Time Stop Time Status Last Admin (NS Flush) 2 ml UNSCH PRN IV FLUSH 02/18/17 00:45 02/19/17 05:34 (NS Flush) 2 ml BID IV FLUSH 02/18/17 09:00 02/18/17 20:56 (Narcan Inj) 0.4 mg UNSCH PRN IV 02/18/17 00:45 (Reglan Inj) 5 mg Q8HR IV PUSH 02/18/17 06:00 02/19/17 05:33 (Apresoline Inj) 10 mg Q30M PRN IV PUSH 02/18/17 02:00 02/18/17 02:25 (Lasix) 20 mg BID@09,18 PO 02/18/17 09:00 02/18/17 17:49 (KCl) 20 meq DAILY PO 02/18/17 09:00 02/18/17 09:53 (CeleXA) 40 mg DAILY PO 02/18/17 09:00 02/18/17 09:54 (Neurontin) 300 mg HS PO 02/18/17 21:00 02/18/17 20:56 (Coumadin) 3 mg DAILY@1600 PO 02/18/17 16:00 02/18/17 17:49 (Prinivil) 40 mg DAILY PO 02/18/17 09:00 02/18/17 09:53 (Protonix) 20 mg DAILY PO 02/18/17 09:00 02/18/17 09:54 (Coreg) 3.125 mg Q12HR PO 02/18/17 09:00 02/18/17 20:56 (Oramorph Sr) 60 mg BID PO 02/18/17 10:45 02/18/17 17:49 (Percocet 5-325 Mg) 1 tab TID PRN PO 02/19/17 08:30 UNV Vital Signs / I&O Vital Signs Date Time Temp Pulse Resp B/P Pulse Ox O2 Delivery O2 Flow Rate FiO2 02/19/17 08:00 97.9 70 20 136/73 95 02/19/17 04:09 98.7 73 17 112/65 91 02/19/17 00:01 98.6 79 17 106/58 93 7/19/17 20:04 16 02/18/17 19:44 98.6 84 18 150/70 93 02/18/17 19:31 70 02/18/17 17:47 89 136/72 94 02/18/17 16:20 78 02/18/17 16:00 99.4 76 13 142/69 94 02/18/17 12:30 99.5 80 13 123/61 94 I/O 02/18/17 02/18/17 02/18/17 02/19/17 02/19/17 02/19/17 06:59 14:59 22:59 06:59 14:59 22:59 Intake Total 120 ml Balance 120 ml Intake Oral 120 ml # Voids 2 Physical Exam GENERAL: Well developed, well nourished. No acute distress. HEENT: Jugular venous pressure is normal. CHEST: Lungs clear to auscultation bilaterally. Unlabored respiratory effort. CARDIAC: Regular rate and rhythm without S3, S4, or murmur. ABDOMEN: Soft, nontender, no hepatosplenomegaly. Bowel sounds present. EXTREMITIES: No clubbing, cyanosis, tr edema (+lymphedema- left) Laboratory Laboratory Tests Test 02/18/17 02/19/17 09:20 06:17 Sodium Level 143 MEQ/L 143 MEQ/L Potassium Level 3.6 MEQ/L 3.1 MEQ/L Chloride Level 108 MEQ/L 105 MEQ/L Carbon Dioxide Level 28.8 MEQ/L 30.2 MEQ/L Anion Gap 6 MEQ/L 8 MEQ/L Blood Urea Nitrogen 6 MG/DL 7 MG/DL Creatinine 0.81 MG/DL 0.75 MG/DL Estimat Glomerular Filtration 69 ML/MIN 75 ML/MIN Rate Random Glucose 98 MG/DL 94 MG/DL Calcium Level 8.4 MG/DL 8.3 MG/DL Magnesium Level 2.0 MG/DL Total Creatine Kinase 94 U/L Troponin I 0.02 NG/ML Assessment and Plan Assessment and Plan HTN- better on present meds Edema- left with lymphedema, multifactorial -conservative measures discussed, declines YANNI CHF- ECHO pending, likely secondary to HTN fluid and sodium restrictions AF- stable Claudia Hernandez MD Feb 19, 2017 08:27
[2017-02-19] MEDS ORDERED: oxyCODONE/ACETAMINOPHEN 5 MG/325 MG TAB PO PRN (08:30)
--- NOTE | 2017-02-19 08:33 | HHI.PR ---
Subjective Remarks Follow-up for lower extremity edema. The patient complains of chronic right hip pain, for which she is on pain management, no acute worsening. She denies any chest pain or shortness of breath. She reports good urine output. She doesn't really report any improvement in her lower extremity swelling overnight. She refuses YANNI hose, states they make her uncomfortable. She denies any difficulty ambulating. She states she tries to elevate her legs when she is at home. Objective Vitals Vital Signs Date Time Temp Pulse Resp B/P Pulse Ox O2 Delivery O2 Flow Rate FiO2 02/19/17 08:00 97.9 70 20 136/73 95 02/19/17 04:09 98.7 73 17 112/65 91 02/19/17 00:01 98.6 79 17 106/58 93 02/18/17 20:04 16 02/18/17 19:44 98.6 84 18 150/70 93 02/18/17 19:31 70 02/18/17 17:47 89 136/72 94 02/18/17 16:20 78 02/18/17 16:00 99.4 76 13 142/69 94 02/18/17 12:30 99.5 80 13 123/61 94 I/O 02/18/17 02/18/17 02/18/17 02/19/17 02/19/17 02/19/17 07:00 15:00 23:00 07:00 15:00 23:00 Intake Total 120 ml Balance 120 ml Intake Oral 120 ml # Voids 2 Result Diagram: 02/17/177 02/19/17 0617 Imaging Last Impressions Abdomen/Pelvis CT 02/17/172230 Signed Impressions: Service Date/Time: Friday, February 17, 2017 22:59 - CONCLUSION: 1. Small bilateral pleural effusions with bibasilar atelectasis. 2. Small hiatal hernia the GE junction. 3. Homogeneous well-defined 2.5 cm cyst along the mid body of the pancreas. This could be an old pseudocyst. No current inflammatory changes are seen associated with the pancreas. 4. Scattered diverticulosis of the sigmoid colon without inflammatory changes. 5. A few mildly dilated loops of small bowel with fluid and air. This is nonspecific and may represent an ileus. Joe Zheng MD Lower Extremity Ultrasound 02/17/172100 Signed Impressions: Service Date/Time: Friday, February 17, 2017 21:56 - CONCLUSION: 1. No definite evidence for DVT bilaterally. The posterior tibial vein on the left compresses fully however there is no documented color-flow. Toby rPater MD Chest X-Ray 02/17/172100 Signed Impressions: Service Date/Time: Friday, February 17, 2017 20:57 - CONCLUSION: Bilateral airspace disease and small left effusion suspected. Toby Prater MD Objective Remarks GENERAL: Well-developed well-nourished obese. In no acute distress. SKIN: Warm and dry. No lesions noted. HEENT: Normocephalic. Pupils equal and round. Mucous membranes pink and moist. CARDIOVASCULAR: Regular rate and rhythm. No murmur appreciated. RESPIRATORY: No accessory muscle use. Clear to auscultation. Breath sounds equal bilaterally. GASTROINTESTINAL: Abdomen soft, non-tender, nondistended. Bowel sounds x4. MUSCULOSKELETAL: No obvious deformities. No clubbing or cyanosis. Bilateral lower extremity edema, nonpitting on the right, 1+ on the left. No calf tenderness. NEUROLOGICAL: Awake and alert. No focal neurological deficits. Moves upper and lower extremities spontaneously. Normal speech. PSYCHIATRIC: Appropriate mood and affect; insight and judgment normal. A/P Problem List: (1) Pleural effusion ICD Code: J90 Status: Acute (2) CHF (congestive heart failure) ICD Code: I50.9 Status: Acute (3) Hypokalemia ICD Code: E87.6 Status: Acute (4) Hypertension ICD Code: I10 Status: Chronic (5) Atrial fibrillation ICD Code: I48.91 Status: Chronic Assessment and Plan 76 y/o female with a history of Afib, chronic back pain, and HTN presented to the ED with complaints of Right sided chest pain and LLE swelling. Small bilateral pleural effusion: Chest x-ray and abdominal CT shows small bilateral pleural effusion. Afebrile with no leukocytosis. -Continue diuresis as blood Chest pain: Atypical, right-sided. Reportedly patient complained of chest pain admission, resolved. ACS ruled out per protocol with unremarkable serial cardiac enzymes and EKGs. -Monitor telemetry -Cardiology on board Chronic lower extremity edema: Bilateral lower extremity edema, left worse than right. Underlying CHF versus lymphedema. Ultrasound negative for DVT. -Consulted cardiology, echocardiogram ordered, started on carvedilol -Diuresing with Lasix 20mg BID, discussed with Dr. eHrnandez, will decrease to daily at discharge. Potassium replacement with diuretics. -Refusing YANNI hose, elevate lower extremities Hypokalemia, at admission and overnight, magnesium within normal limits -Continue oral potassium replacement HTN, chronic, controlled -Continue home Lisinopril AFIB, chronic, controlled -INR 1.9, continue home Coumadin Chronic right hip/flank pain: Follows with pain management. UA negative. Abdominal/pelvis CT with no definite acute or specific changes. -Continue pain management regimen with oxycodone prn and morphine extended release DVT prophylaxis: Coumadin Discharge Planning Follow-up results of echocardiogram, discussed with cardiology, if unremarkable discharge planning to home [address] [place], echo results showed normal EF with trace MR, mild AR, mild TR. Discussed with Dr. Jensen. Results discussed with the patient's daughter. The patient's daughter is concerned about the patient's right-sided pain, doesn't feel like pain is being addressed well. I did recommend continued PCP and pain management follow-up as outpatient for possible musculoskeletal etiology of the patient's pain. Attending Statement The exam, history, and the medical decision-making described in the above note were completed with the assistance of the mid-level provider. I reviewed and agree with the findings presented. I attest that I had a [id number] encounter with the patient on the same day, and personally performed and documented my assessment and findings in the medical record. Problem Qualifiers (1) CHF (congestive heart failure): Qualified Code: I50.9 - Congestive heart failure, unspecified congestive heart failure chronicity, unspecified congestive heart failure type Gerardo Baker Feb 19, 2017 08:33 Boo Tomlinson MD Feb 20, 2017 17:19
[2017-02-19] MEDS: POTASSIUM CHLORIDE 20 MEQ CONTROLLED RELEASE TAB PO SCH (09:00)
[2017-02-19] MEDS: PANTOPRAZOLE SOD 20 MG DELAYED RELEASE TAB PO SCH (09:52)
[2017-02-19] MEDS: CITALOPRAM HYDROBROMIDE 40 MG TAB PO SCH (09:52)
[2017-02-19] MEDS: MORPHINE SULFATE 60 MG CONTROLLED RELEASE TAB PO SCH (09:52)
[2017-02-19] MEDS: FUROSEMIDE 20 MG TAB PO SCH ×2 (09:53→17:25)
[2017-02-19] MEDS: LISINOPRIL 20 MG TAB PO SCH (09:53)
[2017-02-19] MEDS: CARVEDILOL 3.125 MG TAB PO SCH (09:53)
[2017-02-19] MEDS: SODIUM CHLORIDE 0.9% FLUSH 10 ML FLUSH IV FLUSH SCH (09:54)
[2017-02-19] MEDS ORDERED: FURO20TA PO (16:21)
[2017-02-19] MEDS ORDERED: POTA10TA2 PO (16:21)
[2017-02-19] MEDS ORDERED: CARV3.125 PO (16:21)
--- NOTE | 2017-02-19 16:53 | ECHRPT ---
Indication: SOB CONCLUSIONS The left ventricular systolic function is normal with an estimated ejection fraction in the range of 55-60%. Trace mitral valve regurgitation. Mild aortic valve regurgitation. There is mild tricuspid valve regurgitation. BP: / HR: Rhythm: Sinus MEASUREMENTS (Male / Female) Normal Values Technical Quality:Good 2D ECHO LV Diastolic Diameter PLAX 4.2 cm 4.2 - 5.9 / 3.9 - 5.3 cm LV Systolic Diameter PLAX 3.2 cm IVS Diastolic Thickness 0.8 cm 0.6 - 1.0 / 0.6 - 0.9 cm LVPW Diastolic Thickness 0.7 cm 0.6 - 1.0 / 0.6 - 0.9 cm LV Relative Wall Thickness 0.4 LA Systolic Diameter LX 3.4 cm 3.0 - 4.0 / 2.7 - 3.8 cm M-MODE Aortic Root Diameter MM 2.6 cm AV Cusp Separation MM 1.9 cm DOPPLER AV Peak Velocity 175.0 cm/s AV Peak Gradient 12.3 mmHg AV Mean Gradient 6.0 mmHg AV Velocity Time Integral 42.1 cm LVOT Peak Velocity 108.0 cm/s LVOT Peak Gradient 4.7 mmHg LVOT Velocity Time Integral 24.7 cm Mitral E Point Velocity 98.7 cm/s Mitral A Point Velocity 45.9 cm/s Mitral E to A Ratio 2.2 TR Peak Velocity 307.0 cm/s TR Peak Gradient 37.7 mmHg FINDINGS LEFT VENTRICLE Normal left ventricular size. Wall thickness is normal. The left ventricular systolic function is normal with an estimated ejection fraction in the range of 55-60%. RIGHT VENTRICLE Normal right ventricular size and systolic function. LEFT ATRIUM The left atrial size is upper limits of normal. RIGHT ATRIUM The right atrial size is normal. ATRIAL SEPTUM Normal atrial septal thickness without atrial level shunting by limited color doppler interrogation. AORTA The aortic root and proximal ascending aorta are normal in size on limited imaging. MITRAL VALVE Structurally normal mitral valve. Trace mitral valve regurgitation. AORTIC VALVE Mild aortic valve regurgitation. Aortic valve sclerosis is present. TRICUSPID VALVE There is mild tricuspid valve regurgitation. There is estimated mild pulmonary hypertension present ( 48 mmHg). PULMONARY VALVE The pulmonary valve is not well visualized. VESSELS The inferior vena cava is normal in size. PERICARDIUM No pericardial effusion. Deangelo Birmingham DO (Electronically Signed) Final Date:19 February 2017 16:52
[2017-02-19] MEDS: WARFARIN SOD 3 MG TAB PO SCH (17:25)
== END 2017-02-19 20:00 | disposition home or self-care (01) | DRG 293 ==
LOC: NEPC 18:15 → NEDA 02-18 00:45 → OBSVTOIN 02-18 02:35 → NEPHCDU 02-18 04:14
PROVIDERS: ADMIT Internal Medicine; ATTEND Internal Medicine
DX: I11.0 Hypertensive heart disease with heart failure (principal); I48.2 Chronic atrial fibrillation; E11.9 Type 2 diabetes mellitus without complications; F32.9 Major depressive disorder, single episode, unspecified; I50.31 Acute diastolic (congestive) heart failure; K44.9 Diaphragmatic hernia without obstruction or gangrene; G89.29 Other chronic pain; E87.6 Hypokalemia; E66.9 Obesity, unspecified; Z68.35 Body mass index [BMI] 35.0-35.9, adult; Z79.01 Long term (current) use of anticoagulants
CPT/HCPCS: 71010; 74177; 80048; 80053; 81001; 82550; 83690; 83735; 83880; 84132; 84443; 84484; 85025; 85610; 85730; 93005; 93306; 93970; 96374; 96375; 96376; J0360; J1940; J2270; J2405; J2765; Q9967

== ENCOUNTER 2017-05-05 18:16 | Emergency (ER) | payer MEDICARE, OTHER ==
[~2017-05-05] VITALS: Ht 160 cm; Wt 90.0 kg
[~2017-05-05 18:16] MED LIST changes: -CALCCHW25 CHEW; +CARV3.125 PO; +COUM3TAB PO; +FURO20TA PO; +GABA300C5 PO; -LISI40TA PO; -MORP15IN3 PO; +MORP1TAB26 PO; -MS C30TA5 PO; +POTA10TA2 PO; -warfarin PO
[2017-05-05 18:18] VITALS: BP 211/98; PULSE 86; RESP 22; TEMP 99; O2SAT 94
--- NOTE | 2017-05-05 18:41 | PD ---
HPI Chief Complaint: Fall Time Seen by Provider: 18:48 Travel History International Travel<30 days: No Contact w/Intl Traveler<30days: No Traveled to known affect area: No History of Present Illness HPI 76-year-old female history of atrial fibrillation on Coumadin presents for evaluation after 2 mechanical falls. She reports that she fell twice last weekonce 9 days ago, 16 days ago. She reports that one of the falls was when she was attempting to clean the floor with a towel using her foot to move the tile. She reports that she slipped because of this and fell on the ground. The other fall was when she was helping the cable man outside of her house she tripped and fell on a hold. She had left side of her head against the ground. There is no loss of consciousness but she developed some ecchymosis around the left eye. This has improved. She has had persistent left-sided rib cage pain from the fall. The pain is a constant pain which is sharp and worse with movement, deep inspiration. This is the primary reason that she has come for evaluation today. She denies any neck pain, back pain, confusion or amnesia, blurred vision PFSH Past Medical History Hx Anticoagulant Therapy: Yes (COUMADIN) Arthritis: Yes Depression: Yes Cancer: No Cardiovascular Problems: Yes (HTN/A-FIB, STATES 3 LEAKING VALVES) Diabetes: No Diminished Hearing: Yes (once in a while) GERD: Yes Genitourinary: Yes (Frequency) Hiatal Hernia: Yes Hypertension: Yes Immune Disorder: No Neurologic: No Reproductive: Yes (Hysterectomy) Respiratory: No Past Surgical History Gynecologic Surgery: Yes (hysterectomy 1971) Hysterectomy: Yes Joint Replacement: Yes (bilateral knee) Social History Alcohol Use: No Tobacco Use: No Substance Use: No Allergies-Medications (Allergen,Severity, Reaction): Coded Allergies: Sulfa (Sulfonamide Antibiotics) (Unverified Allergy, Intermediate, rash, 05/05/17) acetaminophen (Unverified Allergy, Intermediate, itching, 05/05/17) fentanyl (Unverified Allergy, Intermediate, anxiety, 05/05/17) hydrocodone (Unverified Allergy, Intermediate, itching, 05/05/17) Reported Meds & Prescriptions Reported Meds & Active Scripts Active Lasix (Furosemide) 20 Mg Tab 20 Mg PO DAILY Lidocaine Patch 12 HR (Lidocaine) 5 % Patch 1 Patch TOPICAL DAILY PRN Remove patch after 12 hours Citalopram (Citalopram Hydrobromide) 40 Mg Tab 40 Mg PO DAILY Reported Coumadin (Warfarin) 1 Mg Tab 1.5 Mg PO DAILY Gabapentin 300 Mg Cap 300 Mg PO HS Morphine ER (Morphine Sulfate) 60 Mg Tab 60 Mg PO BID Percocet (Oxycodone-Acetaminophen) 5-325 mg Tab 1 Tab PO TID PRN Omeprazole 20 Mg Cap 1 Cap PO DAILY Review of Systems Except as stated in HPI: all other systems reviewed are Neg Physical Exam Narrative GENERAL: Well-nourished female in no acute distress since her questions appropriately SKIN: Warm and dry. Periorbital ecchymosis is noted. There are contusions to the left thigh, lower leg, right arm, minor abrasions the right forearm. HEAD: Skin as noted above Normocephalic. EYES: Pupils round, right eye is fixed 3 mm nonreactive to light, she reports that this is chronic. Left eye is reactive to light. Extraocular muscles are intact. No hyphema. No scleral icterus. No injection or drainage. ENT: No nasal bleeding or discharge. Mucous membranes pink and moist. NECK: Trachea midline. No JVD. CARDIOVASCULAR: Regular rate and rhythm. No murmur appreciated. RESPIRATORY: No accessory muscle use. Clear to auscultation. Breath sounds equal bilaterally. GASTROINTESTINAL: Abdomen soft, non-tender, nondistended. Hepatic and splenic margins not palpable. MUSCULOSKELETAL: No obvious deformities. Some tenderness to palpation to the left lower rib cage. No tenderness to palpation along the cervical thoracic or lumbar midline spine. No extremity deformity is noted. NEUROLOGICAL: Awake and alert. No obvious cranial nerve deficits. Motor grossly within normal limits. Normal speech. PSYCHIATRIC: Appropriate mood and affect; insight and judgment normal. Data Data Last Documented VS Vital Signs Date Time Temp Pulse Resp B/P (MAP) Pulse Ox O2 Delivery O2 Flow Rate FiO2 05/05/17 23:42 05/05/17 20:44 69 18 99 Nasal Cannula 3.00 05/05/17 18:18 99.0 Orders Orders Prothrombin Time / Inr (Pt) (05/05/17 18:41) Ct Brain W/O Iv Contrast(Rout) (05/05/17 ) Ct Facial Bones W/O Iv Cont (05/05/17 ) Ribs, Uni (W/Exp Cxr-Min 3vw) (05/05/17 ) Ice/Cold Pack (05/05/17 18:47) Tetanus/Diphtheria Tox Adult (Tetanus/Di (05/05/17 19:00) Lisinopril (Prinivil) (05/05/17 18:47) Complete Blood Count With Diff (05/05/17 19:20) Ct Abd/Pel W Iv Contrast(Rout) (05/05/17 19:20) Ct Thorax/ Chest W Iv Contrast (05/05/17 19:20) Iv Access Insert/Monitor (05/05/17 19:20) Comprehensive Metabolic Panel (05/05/17 19:20) Ct Cerv Spine W/O Contrast (05/05/17 19:23) Morphine Inj (Morphine Inj) (05/05/17 20:00) Labetalol Inj (Trandate Inj) (05/05/17 20:00) Iohexol 350 Inj (Omnipaque 350 Inj) (05/05/17 22:02) Morphine Inj (Morphine Inj) (05/05/17 22:30) Labs Laboratory Tests Test 05/05/17 18:45 05/05/17 19:43 Prothrombin Time 24.3 SEC Prothromb Time International Ratio 2.1 RATIO White Blood Count 6.7 TH/MM3 Red Blood Count 3.61 MIL/MM3 Hemoglobin 11.7 GM/DL Hematocrit 34.7 % Mean Corpuscular Volume 96.1 FL Mean Corpuscular Hemoglobin 32.3 PG Mean Corpuscular Hemoglobin Concent 33.6 % Red Cell Distribution Width 14.2 % Platelet Count 258 TH/MM3 Mean Platelet Volume 9.4 FL Neutrophils (%) (Auto) 59.0 % Lymphocytes (%) (Auto) 31.0 % Monocytes (%) (Auto) 6.3 % Eosinophils (%) (Auto) 3.4 % Basophils (%) (Auto) 0.3 % Neutrophils # (Auto) 4.0 TH/MM3 Lymphocytes # (Auto) 2.1 TH/MM3 Monocytes # (Auto) 0.4 TH/MM3 Eosinophils # (Auto) 0.2 TH/MM3 Basophils # (Auto) 0.0 TH/MM3 CBC Comment DIFF FINAL Differential Comment Blood Urea Nitrogen 7 MG/DL Creatinine 0.90 MG/DL Random Glucose 102 MG/DL Total Protein 7.5 GM/DL Albumin 3.5 GM/DL Calcium Level 9.1 MG/DL Alkaline Phosphatase 109 U/L Aspartate Amino Transf (AST/SGOT) 37 U/L Alanine Aminotransferase (ALT/SGPT) 9 U/L Total Bilirubin 0.8 MG/DL Sodium Level 137 MEQ/L Potassium Level 4.6 MEQ/L Chloride Level 106 MEQ/L Carbon Dioxide Level 22.0 MEQ/L Anion Gap 9 MEQ/L Estimat Glomerular Filtration Rate 61 ML/MIN MDM Medical Decision Making Medical Screen Exam Complete: Yes Emergency Medical Condition: Yes Medical Record Reviewed: Yes Interpretation(s) Rib x-ray CONCLUSION: 1. Deformities of the left eighth and possibly ninth ribs. The age of these deformities is not known. 2. Mild to moderate left pleural effusion. 3. Cardiomegaly. INR 2.1 CT cervical spine CONCLUSION: Degenerative changes and postoperative change as described above. An acute bony abnormality is not seen. Differential Diagnosis Contusion, rib fracture, pneumothorax, hemothorax, splenic laceration, facial fracture, intracranial hemorrhage Narrative Course 76-year-old female presents after 2 mechanical falls last week. Her primary pain is of persistent left-sided rib cage pain from the fall. On examination she also has left periorbital ecchymosis and generalized tenderness to palpation left side of her face, CT imaging of the brain and facial bones, rib x -ray been ordered. She has various contusions to the extremities as well. Her INR will be checked. She is noted to be hypertensive- she reports that she did not take her daily lisinopril dose, she will be given lisinopril 40 mg now. She reports that typically her blood pressure is "127/78." X-ray imaging reveals CONCLUSION: 1. Deformities of the left eighth and possibly ninth ribs. The age of these deformities is not known. 2. Mild to moderate left pleural effusion. 3. Cardiomegaly. CT imaging the thorax and abdomen and pelvis have been ordered. The patient will be given morphine, labetalol for persistent hypertension. Scripts Furosemide (Lasix) 20 Mg Tab 20 MG PO DAILY, #30 TAB 0 Refills Prov: Theodore Torres MD 05/05/17 Lidocaine Patch 12 HR (Lidocaine Patch 12 HR) 5 % Patch 1 PATCH TOPICAL DAILY Y for PAIN, #1 BOX 1 Refill Remove patch after 12 hours Prov: Theodore Torres MD 05/05/17 David Loving May 05, 2017 18:41
[2017-05-05] MEDS ORDERED: LISINOPRIL 20 MG TAB PO STA (18:47)
[2017-05-05] MEDS ORDERED: TETANUS/DIPHTHERIA TOXOID ADULT 0.5 ML VIAL IM ONE (19:00)
--- NOTE | 2017-05-05 19:28 | RADRPT ---
EXAM DATE/TIME: 05/05/2017 18:58 [facility] COMPARISON: No previous studies available for comparison. INDICATIONS : Fall on left side rib pain. MEDICAL HISTORY : Hypertension. SURGICAL HISTORY : None. ENCOUNTER: Initial ACUITY: 1 day PAIN SCORE: 0/10 LOCATION: Bilateral chest FINDINGS: There is a deformity at the left eighth and possibly ninth ribs. The age of these deformities is not known. There is a mild to moderate left pleural effusion. The heart size is enlarged. There is promin ence to the interstitium throughout. The right costophrenic angle is clear. Surgical hardware is seen in the cervical spine and the lumbar spine. Clips are seen in the right upper quadrant. CONCLUSION: 1. Deformities of the left eighth and possibly ninth ribs. The age of these deformities is not known. 2. Mild to moderate left pleural effusion. 3. Cardiomegaly. Riley Steel MD on May 05, 2017 at 19:18 Board Certified Radiologist. This report was verified electronically.
[2017-05-05 19:32] LABS: INTERNATIONAL NORMALIZED RATIO 2.1 RATIO; PROTHROMBIN TIME - PATIENT 24.3 SEC (9.8-11.6)
--- NOTE | 2017-05-05 19:55 | RADRPT ---
EXAM DATE/TIME: 05/05/2017 19:20 [facility] COMPARISON: No previous studies available for comparison. INDICATIONS : Trauma. Fall. RADIATION DOSE: 46.61 CTDIvol (mGy) MEDICAL HISTORY : Cardiovascular disease. Hypertension. SURGICAL HISTORY : Hysterectomy. ENCOUNTER: Initial ACUITY: 1 day PAIN SCALE: 5/10 LOCATION: cranial TECHNIQUE: Multiple contiguous axial images were obtained of the head. Using automated exposure control and adj ustment of the mA and/or kV according to patient size, radiation dose was kept as low as reasonably a chievable to obtain optimal diagnostic quality images. DICOM format image data is available electro nically for review and comparison. FINDINGS: CEREBRUM: The ventricles are normal for age. No evidence of midline shift, mass lesion, hemorrhage or acute in farction. No extra-axial fluid collections are seen. POSTERIOR FOSSA: The cerebellum and brainstem are intact. The 4th ventricle is midline. The cerebellopontine angle i s unremarkable. EXTRACRANIAL: The visualized portion of the orbits is intact. SKULL: The calvaria is intact. No evidence of skull fracture. There is fluid in the left mastoid air cells. CONCLUSION: 1. No intracranial abnormality seen. 2. Fluid in the left mastoid air cells. Riley Steel MD on May 05, 2017 at 19:52 Board Certified Radiologist. This report was verified electronically.
--- NOTE | 2017-05-05 19:56 | RADRPT ---
EXAM DATE/TIME: 05/05/2017 19:20 [facility] COMPARISON: No previous studies available for comparison. INDICATIONS : Trauma. Fall. RADIATION DOSE: 56.76 CTDIvol (mGy) MEDICAL HISTORY : Cardiovascular disease. Hypertension. SURGICAL HISTORY : Hysterectomy. ENCOUNTER: Initial ACUITY: 1 day PAIN SCORE: 5/10 LOCATION: facial TECHNIQUE: Volumetric scanning of the facial bones was performed. Using automated exposure control and adjustme nt of the mA and/or kV according to patient size, radiation dose was kept as low as reasonably achiev able to obtain optimal diagnostic quality images. DICOM format image data is available electronicall y for review and comparison. FINDINGS: ORBITS: The orbital and infraorbital osseous structures are intact. The retroconal structures have a normal configuration. No radiopaque foreign bodies are seen. NASAL BONE: The nasal bone and maxillary spine are intact ZYGOMATIC ARCHES: Symmetric without evidence of fracture. SINUSES: The maxillary, ethmoid and frontal sinuses are intact. No air-fluid levels seen. NASAL CAVITY: The nasal septum is intact and midline. The lacrimal ducts are intact. SOFT TISSUES: There is mild left periorbital soft tissue swelling. INTRACRANIAL: No intracranial air seen. CRIBIFORM PLATE: Grossly intact. CONCLUSION: No fracture seen. There is mild left periorbital soft tissue swelling. Riley Steel MD on May 05, 2017 at 19:54 Board Certified Radiologist. This report was verified electronically.
[2017-05-05] MEDS ORDERED: MORPHINE SULFATE 4 MG/ML INJ IV PUSH ONE ×2 (20:00→22:30)
[2017-05-05] MEDS ORDERED: LABETALOL HCL 100 MG/20 ML VIAL IV PUSH ONE (20:00)
[2017-05-05] MEDS ORDERED: COUM1TAB PO (20:01)
[2017-05-05 20:15] VITALS: BP 224/95; PULSE 88; RESP 20; O2SAT 99
[2017-05-05 20:24] LABS: BASOPHIL % 0.3 % (0.0-2.0); EOSINOPHIL # 0.2 TH/MM3 (0-0.4); EOSINOPHIL % 3.4 % (0.0-4.0); HEMATOCRIT 34.7 % (35.0-46.0); HEMO FLAGS DIFF FINAL; LYMPHOCYTE # 2.1 TH/MM3 (1.0-4.8); MEAN CELL VOLUME 96.1 FL (80.0-100.0); MEAN CORPUSCULAR HEMOGLOBIN 32.3 PG (27.0-34.0); MEAN CORPUSCULAR HGB CONC 33.6 % (32.0-36.0); MONO % 6.3 % (0.0-8.0); PLATELET COUNT 258 TH/MM3 (150-450); RED BLOOD COUNT 3.61 MIL/MM3 (4.00-5.30); RED CELL DISTRIBUTION WIDTH 14.2 % (11.6-17.2); WHITE BLOOD COUNT 6.7 TH/MM3 (4.0-11.0)
--- NOTE | 2017-05-05 20:24 | RADRPT ---
EXAM DATE/TIME: 05/05/2017 19:26 [facility] COMPARISON: No previous studies available for comparison. INDICATIONS : Trauma. Fall. RADIATION DOSE: 41.48 CTDIvol (mGy) MEDICAL HISTORY : Cardiovascular disease. Hypertension. SURGICAL HISTORY : Hysterectomy. Fusion, cervical. ENCOUNTER: Initial ACUITY: 1 day PAIN SCALE: 5/10 LOCATION: Neck TECHNIQUE: Volumetric scanning of the cervical spine was performed. Multiplanar reconstructions i n the sagittal, coronal and oblique axial planes were performed. Using automated exposure control a nd adjustment of the mA and/or kV according to patient size, radiation dose was kept as low as reason ably achievable to obtain optimal diagnostic quality images. DICOM format image data is available e lectronically for review and comparison. FINDINGS: VERTEBRAE: The patient has an anterior cervical fusion plate at the C4-C5 level. There does appea r to be fusion at the C5-C6 and C6-C7 disc levels. The cervical vertebral bodies are normal in heigh t. There is minimal anterior subluxation of C3 on C4 in the order of 2 to 3 mm. The craniovertebral junction is intact. The C1 ring is intact. The C1-C2 articulation is intact. The dens is intact. C2-C3: Disc space is narrowed. A significant impression on the thecal sac is not seen. The neural fo ramina are normal. There is facet hypertrophy and possible fusion seen at the right side. C3-C4: Disc demonstrates decreased height. Again noted is the anterior subluxation of C3 on C4. Th ere is bilateral facet hypertrophy being worse on the right. The neural foramina are grossly intact. C4-C5: The patient is status post fusion at this level. A significant impression on the thecal sac is not seen. There is bilateral facet hypertrophy and possibly some degree of fusion at the facet wilfrido ints. The neural foramina are grossly intact. C5-C6: The patient appears to have fusion at this disc level. A significant impression on the theca l sac is not seen. The neural foramina are normal. The patient is status post right hemilaminectomy at this level. C6-C7: The patient appears to have fusion at this disc level. A significant impression on the theca ls sac is not seen. The neural foramina are normal. There appears to be fusion at the facet joints. C7-T1: The disc demonstrates decreased height. A significant impression on the thecal sac is not se en. The neural foramina are normal. There is bilateral facet hypertrophy. CONCLUSION: Degenerative changes and postoperative change as described above. An acute bony abno rmality is not seen. Riley Steel MD on May 05, 2017 at 20:09 Board Certified Radiologist. This report was verified electronically.
[2017-05-05 20:44] VITALS: BP 169/79; PULSE 69; RESP 18; O2SAT 99
[2017-05-05 20:51] LABS: ALT (GPT) 9 U/L (10-53)
[2017-05-05 20:54] LABS: ALKALINE PHOSPHATASE 109 U/L (45-117); TOTAL BILIRUBIN ADULT 0.8 MG/DL (0.2-1.0)
[2017-05-05 20:57] LABS: ANION GAP 9 MEQ/L (5-15); AST (GOT) 37 U/L (15-37); BLOOD UREA NITROGEN 7 MG/DL (7-18); CHLORIDE 106 MEQ/L (98-107); GLOMERULAR FILTRATION RATE 61 ML/MIN (>89); POTASSIUM 4.6 MEQ/L (3.5-5.1); SODIUM (NA) 137 MEQ/L (136-145)
[2017-05-05] MEDS ORDERED: IOHEXOL 350 MG/ML 10 ML VIAL (for RAD DIAG) IVCONTRAST ONE (22:02)
[2017-05-05] MEDS ORDERED: LIDO1PAD52 TOPICAL (22:46)
[2017-05-05] MEDS ORDERED: FURO1TAB62 PO (22:46)
--- NOTE | 2017-05-05 23:04 | RADRPT ---
EXAM DATE/TIME: 05/05/2017 21:44 [facility] COMPARISON: No previous studies available for comparison. INDICATIONS : Trauma, fall one week ago. IV CONTRAST: 97 cc Omnipaque 350 (iohexol) IV ; Cumulative dose for multiple exams. RADIATION DOSE: 18.32 CTDIvol (mGy) ; Combined studies - Thorax/Abdomen/Pelvis MEDICAL HISTORY : Cardiovascular disease. Hypertension. Hernia, hiatal. SURGICAL HISTORY : Hysterectomy. ENCOUNTER: Initial ACUITY: 1 week PAIN SCALE: 6/10 LOCATION: Left chest TECHNIQUE: Volumetric scanning of the chest was performed. Using automated exposure control and adjustment of the mA and/or kV according to patient size, radiation dose was kept as low as reasonab ly achievable to obtain optimal diagnostic quality images. DICOM format image data is available gricelda ctronically for review and comparison. Follow-up recommendations for detected pulmonary nodules are based at a minimum on nodule size and pa tient risk factors according to Fleischner Society Guidelines. FINDINGS: The mediastinal structures appear intact. There are mild bilateral pleural effusions. There are accompanying areas of atelectasis or consolidation being worse at the left base. There is a mild hiatal hernia. There are some chronic-appearing endplate changes seen in the midthoracic spine . An acute fracture is not clearly identified throughout the visualized bony structures. CONCLUSION: 1. Mild bilateral pleural effusions being greater on the left. There are accompanying areas of atele ctasis or consolidation being worse on the left. 2. Mild hiatal hernia. Riley Steel MD on May 05, 2017 at 22:56 Board Certified Radiologist. This report was verified electronically.
--- NOTE | 2017-05-05 23:12 | RADRPT ---
EXAM DATE/TIME: 05/05/2017 21:44 [facility] COMPARISON: CT ABDOMEN & PELVIS W CONTRAST, February 17, 2017, 22:59. INDICATIONS : Trauma, fall one week ago. IV CONTRAST: 97 cc Omnipaque 350 (iohexol) IV ; Cumulative dose for multiple exams. ORAL CONTRAST: No oral contrast ingested. RADIATION DOSE: 18.32 CTDIvol (mGy) ; Combined studies - Thorax/Abdomen/Pelvis MEDICAL HISTORY : Hypertension. Cardiovascular disease Hernia, hiatal. SURGICAL HISTORY : Hysterectomy. ENCOUNTER: Initial ACUITY: 1 week PAIN SCALE: 3/10 LOCATION: Left abdomen TECHNIQUE: Volumetric scanning of the abdomen and pelvis was performed. Using automated exposure control and adjustment of the mA and/or kV according to patient size, radiation dose was kept as low as reasonably achievable to obtain optimal diagnostic quality images. DICOM format image data is av ailable electronically for review and comparison. FINDINGS: The liver and spleen are normal. Clips are seen in the right upper quadrant from prior cholecystectomy. There is some minimal distension of the common bile duct measuring up to 1.3 cm li juan m reflecting a reservoir phenomenon following cholecystectomy. There is fatty infiltration of the pancreas. There is a 2.5 cm focal fluid collection seen superior to the pancreas. This was present previously. There is a 1 cm area of calcification seen at the right adrenal gland region. This coul d be related to a calcification in the adrenal gland itself versus an aneurysm in this region. This is unchanged. The left adrenal gland is normal. Both kidneys demonstrate normal enhancement. Athero sclerotic calcifications are seen throughout the aorta. The aorta is normal in size. There are colo adam diverticula particularly in the sigmoid region. Significant inflammatory change is not seen. Th e pelvic structures appear grossly intact. The patient appears to be status post hysterectomy. Ther e is surgical hardware seen in the lower lumbar spine. There is degenerative change seen throughout t he lumbar spine. There are mild bilateral pleural effusions being greater on the left. The patient had a CT examinati on of the chest. CONCLUSION: 1. No acute abnormality is seen within the abdomen and pelvis. 2. Suspected mild hepatic steatosis. 3. Stable 2.5 cm cystic area seen superior to the pancreas. This could be an old pseudocyst. It is u nchanged. The patient does have atrophy of the pancreas. 4. Mild dilatation of the common bile duct likely reflecting a reservoir phenomenon following cholecy stectomy. 5. 1 cm peripherally calcified mass in the right adrenal gland region representing either an adrenal calcification or calcification of an aneurysm in this region. This is unchanged from the prior exam. 6. Colonic diverticula without significant inflammatory change. 7. Degenerative and postoperative change in the lumbar spine. Riley Setel MD on May 05, 2017 at 22:58 Board Certified Radiologist. This report was verified electronically.
--- NOTE | 2017-05-05 23:34 | PD ---
Data Data Last Documented VS Vital Signs Date Time Temp Pulse Resp B/P (MAP) Pulse Ox O2 Delivery O2 Flow Rate FiO2 05/05/17 20:44 69 18 169/79 (109) 99 Nasal Cannula 3.00 05/05/17 18:18 99.0 Orders Orders Prothrombin Time / Inr (Pt) (05/05/17 18:41) Ct Brain W/O Iv Contrast(Rout) (05/05/17 ) Ct Facial Bones W/O Iv Cont (05/05/17 ) Ribs, Uni (W/Exp Cxr-Min 3vw) (05/05/17 ) Ice/Cold Pack (05/05/17 18:47) Tetanus/Diphtheria Tox Adult (Tetanus/Di (05/05/17 19:00) Lisinopril (Prinivil) (05/05/17 18:47) Complete Blood Count With Diff (05/05/17 19:20) Ct Abd/Pel W Iv Contrast(Rout) (05/05/17 19:20) Ct Thorax/ Chest W Iv Contrast (05/05/17 19:20) Iv Access Insert/Monitor (05/05/17 19:20) Comprehensive Metabolic Panel (05/05/17 19:20) Ct Cerv Spine W/O Contrast (05/05/17 19:23) Morphine Inj (Morphine Inj) (05/05/17 20:00) Labetalol Inj (Trandate Inj) (05/05/17 20:00) Iohexol 350 Inj (Omnipaque 350 Inj) (05/05/17 22:02) Morphine Inj (Morphine Inj) (05/05/17 22:30) Labs Laboratory Tests Test 05/05/17 18:45 05/05/17 19:43 Prothrombin Time 24.3 SEC Prothromb Time International Ratio 2.1 RATIO White Blood Count 6.7 TH/MM3 Red Blood Count 3.61 MIL/MM3 Hemoglobin 11.7 GM/DL Hematocrit 34.7 % Mean Corpuscular Volume 96.1 FL Mean Corpuscular Hemoglobin 32.3 PG Mean Corpuscular Hemoglobin Concent 33.6 % Red Cell Distribution Width 14.2 % Platelet Count 258 TH/MM3 Mean Platelet Volume 9.4 FL Neutrophils (%) (Auto) 59.0 % Lymphocytes (%) (Auto) 31.0 % Monocytes (%) (Auto) 6.3 % Eosinophils (%) (Auto) 3.4 % Basophils (%) (Auto) 0.3 % Neutrophils # (Auto) 4.0 TH/MM3 Lymphocytes # (Auto) 2.1 TH/MM3 Monocytes # (Auto) 0.4 TH/MM3 Eosinophils # (Auto) 0.2 TH/MM3 Basophils # (Auto) 0.0 TH/MM3 CBC Comment DIFF FINAL Differential Comment Blood Urea Nitrogen 7 MG/DL Creatinine 0.90 MG/DL Random Glucose 102 MG/DL Total Protein 7.5 GM/DL Albumin 3.5 GM/DL Calcium Level 9.1 MG/DL Alkaline Phosphatase 109 U/L Aspartate Amino Transf (AST/SGOT) 37 U/L Alanine Aminotransferase (ALT/SGPT) 9 U/L Total Bilirubin 0.8 MG/DL Sodium Level 137 MEQ/L Potassium Level 4.6 MEQ/L Chloride Level 106 MEQ/L Carbon Dioxide Level 22.0 MEQ/L Anion Gap 9 MEQ/L Estimat Glomerular Filtration Rate 61 ML/MIN MDM Supervised Visit with CHENCHO: No Narrative Course I, Dr. Torres, have reviewed the advance practice practitioner's documentation and am in agreement, met with the patient face to face, made the diagnosis, and the medical decision making was done by me. See his note for further details. Briefly this is a 76-year-old female who is on Coumadin who is here for evaluation after having had 2 mechanical falls last week. She is complaining of left-sided rib pain and ecchymosis to her left face. Vital signs show heart rate 69, blood pressure 169/79, pulse ox 94% on room air , oral temp of 99F. CBC: WBC 6.7, hemoglobin 11.7, hematocrit 34.7, platelets 258. CMP is unremarkable. INR is 2.1. CT head: CONCLUSION: 1. No intracranial abnormality seen. 2. Fluid in the left mastoid air cells. CT cervical spine: CONCLUSION: Degenerative changes and postoperative change as described above. An acute bony abnormality is not seen. CT facial bones: CONCLUSION: No fracture seen. There is mild left periorbital soft tissue swelling. CT thorax: CONCLUSION: 1. Mild bilateral pleural effusions being greater on the left. There are accompanying areas of atelectasis or consolidation being worse on the left. 2. Mild hiatal hernia. CT abdomen pelvis: CONCLUSION: 1. No acute abnormality is seen within the abdomen and pelvis. 2. Suspected mild hepatic steatosis. 3. Stable 2.5 cm cystic area seen superior to the pancreas. This could be an old pseudocyst. It is unchanged. The patient does have atrophy of the pancreas. 4. Mild dilatation of the common bile duct likely reflecting a reservoir phenomenon following cholecystectomy. 5. 1 cm peripherally calcified mass in the right adrenal gland region representing either an adrenal calcification or calcification of an aneurysm in this region. This is unchanged from the prior exam. 6. Colonic diverticula without significant inflammatory change. 7. Degenerative and postoperative change in the lumbar spine. The patient and the patient's daughter were made aware of all findings. She is still complaining of left-sided rib pain. She has no upper respiratory symptoms , cough, or fever. I do not believe her CT thorax findings of possible opacity represents a pneumonia and is more likely atelectasis due to her small bilateral pleural effusions. She had these pleural effusions when she was admitted earlier this year and was started on low-dose Lasix which she is no longer taking. Patient states that she feels well enough and would like to go home. I believe she is stable for discharge home with outpatient follow-up with her primary care physician this week. She will be restarted on low-dose Lasix as well as given a perception for Lidoderm patches. She was informed on when to return to the emergency department. Both the patient and the patient's daughter verbalize understanding and agreement with plan. Diagnosis Primary Impression: Fall Qualified Codes: W19.XXXA - Unspecified fall, initial encounter Additional Impressions: Chest wall contusion Qualified Codes: S20.212A - Contusion of left front wall of thorax, initial encounter Bilateral pleural effusion Contusion of face Qualified Codes: S00.83XA - Contusion of other part of head, initial encounter Referrals: Primary Care Physician 3 days Additional Instruction: Follow-up with your primary care physician this week. Return to the emergency department for worsening symptoms or any other concerns. Scripts Furosemide (Lasix) 20 Mg Tab 20 MG PO DAILY, #30 TAB 0 Refills Prov: Theodroe Torres MD 05/05/17 Lidocaine Patch 12 HR (Lidocaine Patch 12 HR) 5 % Patch 1 PATCH TOPICAL DAILY Y for PAIN, #1 BOX 1 Refill Remove patch after 12 hours Prov: Theodore Torres MD 05/05/17 Disposition: 01 DISCHARGE HOME Condition: Stable Theodore Torres MD May 05, 2017 23:34
== END 2017-05-06 00:06 | disposition home or self-care (01) ==
LOC: NEPD 18:16
DX: S20.212A Contusion of left front wall of thorax, initial encounter (principal); S00.83XA Contusion of other part of head, initial encounter; J90 Pleural effusion, not elsewhere classified; I10 Essential (primary) hypertension; I48.91 Unspecified atrial fibrillation; W01.0XXA Fall on same level from slipping, tripping and stumbling without subsequent striking against object, initial encounter; Y92.009 Unspecified place in unspecified non-institutional (private) residence as the place of occurrence of the external cause; Z79.01 Long term (current) use of anticoagulants; Z23 Encounter for immunization
CPT/HCPCS: 70450; 70486; 71101; 71260; 72125; 74177; 80053; 85025; 85610; 90471; 90714; 96374; 96375; 96376; 99285; J2270; Q9967

== ENCOUNTER 2017-07-22 13:01 | Observation (INO) | payer MEDICARE, OTHER ==
[~2017-07-22] VITALS: Ht 160 cm; Wt 93.0 kg
[~2017-07-22 13:01] MED LIST changes: -CARV3.125 PO; +CITA20TA4 PO; -CITA40TA4 PO; +CLON0.5T PO; -COUM3TAB PO; -FURO20TA PO; +HUMIBIDDM PO; -MORP1TAB26 PO; +MS C15TA7 PO; -POTA10TA2 PO
[2017-07-22 13:28] VITALS: BP 145/68; PULSE 76; RESP 16; TEMP 99.1; O2SAT 96
[2017-07-22] MEDS ORDERED: SODIUM CHLORIDE 0.9% FLUSH 10 ML FLUSH IVF PRN (13:45)
--- NOTE | 2017-07-22 13:56 | PD ---
HPI Chief Complaint: Abnormal Results Time Seen by Provider: 13:26 Travel History International Travel<30 days: No Contact w/Intl Traveler<30days: No Traveled to known affect area: No History of Present Illness HPI 77-year-old female with recent diagnosis of myelodysplastic anemia, seen earlier today by Dr. Norowod, the oncologist, and told to come in here due to her low hematocrit and hemoglobin. Patient has history of CHF as well as chronic pedal edema. She feels weak and short of breath but denies chest pain, but has chronic lower extremity pain well as low back pain for which she is on narcotics in the nursing facility. Patient has had multiple lower extremity ultrasounds according to the daughter who is here without previous signs of DVT. The daughter states that her mother tends to get confused when her hematocrit is low. She states she reportedly with Dr. Norwood wanted her to get 3 units of blood. She cannot remember the number of the hematocrit. Patient is allergic to sulfa, acetaminophen, fentanyl, hydrocodone, and quetiapine. PFSH Past Medical History Hx Anticoagulant Therapy: Yes (COUMADIN) Arthritis: Yes Atrial Fibrillation: Yes Depression: Yes Heart Rhythm Problems: Yes Cancer: Yes (MDS) Cardiovascular Problems: Yes (HTN/A-FIB, STATES 3 LEAKING VALVES) Diabetes: No Diminished Hearing: Yes (once in a while) Endocrine: No Gastrointestinal Disorders: Yes (Diverticulosis noted 02/17/17) GERD: Yes Genitourinary: Yes (Frequency) Hiatal Hernia: Yes Hypertension: Yes Immune Disorder: No Implanted Vascular Access Dvce: Yes Musculoskeletal: Yes (CHRONIC PAIN) Neurologic: Yes (NEUROPATHY) Psychiatric: Yes Reproductive: Yes (Hysterectomy) Respiratory: Yes (PN) Past Surgical History Gynecologic Surgery: Yes (hysterectomy 1971) Hysterectomy: Yes Joint Replacement: Yes (bilateral knee) Other Surgery: Yes Social History Alcohol Use: No Tobacco Use: No Substance Use: No Allergies-Medications (Allergen,Severity, Reaction): Coded Allergies: Sulfa (Sulfonamide Antibiotics) (Unverified Allergy, Intermediate, rash, 07/22/17) acetaminophen (Unverified Allergy, Intermediate, itching, 07/22/17) fentanyl (Unverified Allergy, Intermediate, anxiety, 07/22/17) hydrocodone (Unverified Allergy, Intermediate, itching, 07/22/17) quetiapine (Verified Allergy, Unknown, Twitching, 07/22/17) Reported Meds & Prescriptions Reported Meds & Active Scripts Active Reported Citalopram (Citalopram Hydrobromide) 20 Mg Tab 20 Mg PO DAILY Clonazepam 0.5 Mg Tab 0.5 Mg PO BID Ms Contin (Morphine Sulfate) 15 Mg Tab 30 Mg PO BID Mucinex DM (Dextromethorphan-Guaifenesin) 30-600 Mg Tab 2 Tab PO BID PRN Gabapentin 300 Mg Cap 300 Mg PO HS Percocet (Oxycodone-Acetaminophen) 5-325 mg Tab 1 Tab PO TID PRN Omeprazole 20 Mg Cap 1 Cap PO DAILY Review of Systems ROS Limitations: Poor Historian, Other: (patient somewhat confused.) Except as stated in HPI: all other systems reviewed are Neg General / Constitutional: No: Fever Eyes: No: Visual changes HENT: No: Headaches Cardiovascular: Positive: Dyspnea on exertion, Edema (chronic lower extremity) , No: Chest Pain or Discomfort, Palpitations, Irregular Rhythm, Tachycardia, Diaphoresis, Syncope, Varicosities, Cyanosis, Varicosities, Phlebitis, Claudication Respiratory: No: Cough, Shortness of Breath, Wheezing Gastrointestinal: No: Nausea, Vomiting, Diarrhea, Abdominal Pain Genitourinary: No: Dysuria Musculoskeletal: No: Pain Skin: No Rash Neurologic: No: Weakness Psychiatric: No: Depression Endocrine: No: Polydipsia Hematologic/Lymphatic: No: Easy Bruising Physical Exam Narrative GENERAL: Patient appears in mild distress. SKIN: Warm and dry. Moderate pallor. Somewhat decreased turgor. HEAD: Atraumatic. Normocephalic. EYES: Pupils equal and round. No scleral icterus. No injection or drainage. ENT: No nasal bleeding or discharge. Mucous membranes pink and moist. Pharynx is clear. Airway is patent. NECK: Trachea midline. Supple nontender. CARDIOVASCULAR: Regular rate and rhythm. RESPIRATORY: No accessory muscle use. Crackles to both bases to auscultation. Breath sounds equal bilaterally. GASTROINTESTINAL: Abdomen soft, non-tender, nondistended. Hepatic and splenic margins not palpable. MUSCULOSKELETAL: Extremities without clubbing, cyanosis, with bilateral 2+ pitting edema. No obvious deformities. NEUROLOGICAL: Awake and alert. No obvious cranial nerve deficits. Motor grossly within normal limits. Five out of 5 muscle strength in the arms and legs. Normal speech. PSYCHIATRIC: Appropriate mood and affect; insight and judgment normal. Data Data Last Documented VS Vital Signs Date Time Temp Pulse Resp B/P (MAP) Pulse Ox O2 Delivery O2 Flow Rate FiO2 07/22/17 14:46 93 Room Air 07/22/17 13:28 99.1 76 16 Orders Orders Electrocardiogram (07/22/17 13:43) Complete Blood Count With Diff (07/22/17 13:43) Comprehensive Metabolic Panel (07/22/17 13:43) Magnesium (Mg) (07/22/17 13:43) B-Type Natriuretic Peptide (07/22/17 13:43) Act Partial Throm Time (Ptt) (07/22/17 13:43) Prothrombin Time / Inr (Pt) (07/22/17 13:43) Urinalysis - C+S If Indicated (07/22/17 13:43) Ecg Monitoring (07/22/17 13:43) Iv Access Insert/Monitor (07/22/17 13:43) Oximetry (07/22/17 13:43) Sodium Chloride 0.9% Flush (Ns Flush) (07/22/17 13:45) Type And Screen (07/22/17 13:43) Diet Heart Healthy (07/22/17 Dinner) Chest, Single Ap (07/22/17 14:40) Red Blood Cells (Rbc) (07/22/17 14:42) Sodium Chlor 0.9% 250 Ml Inj (Ns 250 Ml (07/22/17 14:45) Place In Observation (07/22/17 ) Vital Signs (Adult) Q4H (07/22/17 15:39) Activity Oob With Assistance (07/22/17 15:39) Dope Maintenance Worker / Telemetry .CONTINUOUS (07/22/17 15:39) Sodium Chloride 0.9% Flush (Ns Flush) (07/22/17 15:45) Sodium Chloride 0.9% Flush (Ns Flush) (07/22/17 21:00) Basic Metabolic Panel (Bmp) (07/23/17 06:00) Complete Blood Count With Diff (07/23/17 06:00) Pt Request For Service (07/22/17 15:39) Case Management Consult (07/22/17 15:39) Naloxone Inj (Narcan Inj) (07/22/17 15:45) Consult Hematology (07/22/17 ) Admit Order (Ed Use Only) (07/22/17 15:39) Labs Laboratory Tests Test 07/22/17 13:45 White Blood Count 4.7 TH/MM3 Red Blood Count 2.37 MIL/MM3 Hemoglobin 7.7 GM/DL Hematocrit 22.2 % Mean Corpuscular Volume 93.7 FL Mean Corpuscular Hemoglobin 32.6 PG Mean Corpuscular Hemoglobin Concent 34.8 % Red Cell Distribution Width 16.1 % Platelet Count 100 TH/MM3 Mean Platelet Volume 11.8 FL Neutrophils (%) (Auto) 15.4 % Lymphocytes (%) (Auto) 44.6 % Monocytes (%) (Auto) 19.3 % Eosinophils (%) (Auto) 15.1 % Basophils (%) (Auto) 5.6 % Neutrophils # (Auto) 0.7 TH/MM3 Lymphocytes # (Auto) 2.1 TH/MM3 Monocytes # (Auto) 0.9 TH/MM3 Eosinophils # (Auto) 0.7 TH/MM3 Basophils # (Auto) 0.3 TH/MM3 CBC Comment AUTO DIFF Differential Total Cells Counted 100 Neutrophils % (Manual) 11 % Band Neutrophils % 1 % Lymphocytes % 48 % Monocytes % 9 % Eosinophils % 16 % Basophils % 14 % Neutrophils # (Manual) 0.6 TH/MM3 Myelocytes 1 % Differential Comment FINAL DIFF MANUAL Platelet Estimate LOW Platelet Morphology Comment ENLARGED Tear Drop Cells 1+ Ovalocytes 1+ Prothrombin Time 14.0 SEC Prothromb Time International Ratio 1.4 RATIO Activated Partial Thromboplast Time 22.6 SEC Blood Urea Nitrogen 21 MG/DL Creatinine 1.63 MG/DL Random Glucose 96 MG/DL Total Protein 5.6 GM/DL Albumin 2.5 GM/DL Calcium Level 8.1 MG/DL Magnesium Level 1.6 MG/DL Alkaline Phosphatase 96 U/L Aspartate Amino Transf (AST/SGOT) 20 U/L Alanine Aminotransferase (ALT/SGPT) 10 U/L Total Bilirubin 1.2 MG/DL Sodium Level 136 MEQ/L Potassium Level 3.5 MEQ/L Chloride Level 104 MEQ/L Carbon Dioxide Level 23.9 MEQ/L Anion Gap 8 MEQ/L Estimat Glomerular Filtration Rate 31 ML/MIN B-Type Natriuretic Peptide 167 PG/ML MDM Medical Decision Making Medical Screen Exam Complete: Yes Emergency Medical Condition: Yes Medical Record Reviewed: Yes Differential Diagnosis Symptomatic anemia. Mild dysplastic anemia. CHF. Narrative Course Patient appears stable at time of exam. Labs ordered including CBC, CMP, PT PTT and INR, BNP, and type and screen is ordered. EKG and chest x-ray ordered. EKG shows atrial fibrillation without acute findings. This is reviewed with Dr. Rees. Chest x-ray is unremarkable for acute findings. Cardiomegaly is noted. Labs show hemoglobin of 7.7, hematocrit of 22.2. Platelets are 100. Coags show PT of 14.0 with an INR of 1.4. APTT is 22.6. CMP significant for BUN of 21, creatinine 1.63, GFR 31. ProBNP is 167. Patient discussed with Dr. Rees who recommends admission for 1 unit of blood. Observation admission is recommended with consult to Dr. Norwood. Diagnosis Primary Impression: Symptomatic anemia Additional Impression: Chronic pain Qualified Codes: G89.4 - Chronic pain syndrome Admitting Information Admitting Physician Requests: Observation Condition: Stable Tha Varma Jul 22, 2017 13:56
[2017-07-22 14:21] LABS: AUTOMATED NEUTROPHIL # 0.7 TH/MM3 (1.8-7.7); BASOPHIL # 0.3 TH/MM3 (0-0.2); BASOPHIL % 5.6 % (0.0-2.0); EOSINOPHIL # 0.7 TH/MM3 (0-0.4); EOSINOPHIL % 15.1 % (0.0-4.0); HEMATOCRIT 22.2 % (35.0-46.0); LYMPH % 44.6 % (9.0-44.0); LYMPHOCYTE # 2.1 TH/MM3 (1.0-4.8); MEAN CELL VOLUME 93.7 FL (80.0-100.0); MEAN CORPUSCULAR HEMOGLOBIN 32.6 PG (27.0-34.0); MEAN CORPUSCULAR HGB CONC 34.8 % (32.0-36.0); MONO % 19.3 % (0.0-8.0); NEUT % 15.4 % (16.0-70.0); PLATELET COUNT 100 TH/MM3 (150-450); RED BLOOD COUNT 2.37 MIL/MM3 (4.00-5.30); RED CELL DISTRIBUTION WIDTH 16.1 % (11.6-17.2); WHITE BLOOD COUNT 4.7 TH/MM3 (4.0-11.0)
[2017-07-22 14:22] LABS: HEMO FLAGS AUTO DIFF
[2017-07-22 14:34] LABS: APTT (PATIENT) 22.6 SEC (24.3-30.1); INTERNATIONAL NORMALIZED RATIO 1.4 RATIO
[2017-07-22 14:43] LABS: ALKALINE PHOSPHATASE 96 U/L (45-117); TOTAL BILIRUBIN ADULT 1.2 MG/DL (0.2-1.0)
[2017-07-22] MEDS ORDERED: SODIUM CHLOR 0.9% 250 ML INJ 250 ML IV ONE (14:45)
[2017-07-22 14:46] VITALS: O2SAT 93
[2017-07-22 14:48] LABS: ALT (GPT) 10 U/L (10-53); ANION GAP 8 MEQ/L (5-15); AST (GOT) 20 U/L (15-37); BICARBONATE 23.9 MEQ/L (21.0-32.0); BLOOD UREA NITROGEN 21 MG/DL (7-18); CHLORIDE 104 MEQ/L (98-107); GLOMERULAR FILTRATION RATE 31 ML/MIN (>89); MAGNESIUM 1.6 MG/DL (1.5-2.5); SODIUM (NA) 136 MEQ/L (136-145)
[2017-07-22 14:49] LABS: POTASSIUM 3.5 MEQ/L (3.5-5.1)
[2017-07-22 15:18] LABS: BANDS 1 % (0-6); BASOPHILS 14 % (0-2); EOSINOPHILS 16 % (0-4); MYELOCYTES 1 % (0-0); NEUTROPHIL # MANUAL DIFF 0.6 TH/MM3 (1.8-7.7); POLYS (SEG NEUTROPHILS) 11 % (16-70); WBC DIFF SAMPLE 100
[2017-07-22 15:19] LABS: OVALOCYTES 1+ (NORMAL); PLATELET ESTIMATE SMEAR LOW (NORMAL); PLATELET MORPHOLOGY ENLARGED (NORMAL); SCAN/DIFF FINAL DIFF MANUAL; TEARDROP RBCS 1+ (NORMAL)
--- NOTE | 2017-07-22 15:42 | RADRPT ---
EXAM DATE/TIME: 07/22/2017 15:04 [facility] COMPARISON: CHEST SINGLE AP, February 17, 2017, 20:57. INDICATIONS : Short of breath. MEDICAL HISTORY : Cardiovascular disease. Hypertension hiatal hernia SURGICAL HISTORY : Hysterectomy. ENCOUNTER: Initial ACUITY: 1 day PAIN SCORE: 0/10 LOCATION: Bilateral chest FINDINGS: A single view of the chest demonstrates mild interstitial prominence possibly representing some degre e of vascular congestion or volume overload. Left basilar consolidation with right basilar atelectasi s. Probable bilateral pleural effusions, left greater than right. Heart size is prominent. Anterior f ixation of lower cervical spine. Degenerative spurring of the dorsal spine CONCLUSION: 1. Cardiomegaly with some interstitial prominence possibly representing some degree of vascular conge stion or volume overload. 2. Left basilar consolidation with right basilar atelectasis and probable bilateral pleural effusions . Billy Conrad MD on July 22, 2017 at 15:38 Board Certified Radiologist. This report was verified electronically.
[2017-07-22] MEDS ORDERED: SODIUM CHLORIDE 0.9% FLUSH 10 ML FLUSH IV FLUSH PRN (15:45)
[2017-07-22] MEDS ORDERED: NALOXONE HCL 0.4 MG/ML AMP IV PUSH PRN (15:45)
--- NOTE | 2017-07-22 16:13 | PD ---
Data Data Last Documented VS Vital Signs Date Time Temp Pulse Resp B/P (MAP) Pulse Ox O2 Delivery O2 Flow Rate FiO2 07/22/17 14:46 93 Room Air 07/22/17 13:28 99.1 76 16 Orders Orders Electrocardiogram (07/22/17 13:43) Complete Blood Count With Diff (07/22/17 13:43) Comprehensive Metabolic Panel (07/22/17 13:43) Magnesium (Mg) (07/22/17 13:43) B-Type Natriuretic Peptide (07/22/17 13:43) Act Partial Throm Time (Ptt) (07/22/17 13:43) Prothrombin Time / Inr (Pt) (07/22/17 13:43) Urinalysis - C+S If Indicated (07/22/17 13:43) Ecg Monitoring (07/22/17 13:43) Iv Access Insert/Monitor (07/22/17 13:43) Oximetry (07/22/17 13:43) Sodium Chloride 0.9% Flush (Ns Flush) (07/22/17 13:45) Type And Screen (07/22/17 13:43) Vascular Access Team Consult/P PRN (07/22/17 14:40) Vascular Poc Ultrasound (07/22/17 ) Diet Heart Healthy (07/22/17 Dinner) Chest, Single Ap (07/22/17 14:40) Red Blood Cells (Rbc) (07/22/17 14:42) Blood Product Administration (07/22/17 14:42) Sodium Chlor 0.9% 250 Ml Inj (Ns 250 Ml (07/22/17 14:45) Place In Observation (07/22/17 ) Vital Signs (Adult) Q4H (07/22/17 15:39) Activity Oob With Assistance (07/22/17 15:39) Line Appliance Assembler / Telemetry .CONTINUOUS (07/22/17 15:39) Sodium Chloride 0.9% Flush (Ns Flush) (07/22/17 15:45) Sodium Chloride 0.9% Flush (Ns Flush) (07/22/17 21:00) Basic Metabolic Panel (Bmp) (07/23/17 06:00) Complete Blood Count With Diff (07/23/17 06:00) Pt Request For Service (07/22/17 15:39) Case Management Consult (07/22/17 15:39) Naloxone Inj (Narcan Inj) (07/22/17 15:45) Consult Hematology (07/22/17 ) Admit Order (Ed Use Only) (07/22/17 15:39) Labs Laboratory Tests Test 07/22/17 13:45 White Blood Count 4.7 TH/MM3 Red Blood Count 2.37 MIL/MM3 Hemoglobin 7.7 GM/DL Hematocrit 22.2 % Mean Corpuscular Volume 93.7 FL Mean Corpuscular Hemoglobin 32.6 PG Mean Corpuscular Hemoglobin Concent 34.8 % Red Cell Distribution Width 16.1 % Platelet Count 100 TH/MM3 Mean Platelet Volume 11.8 FL Neutrophils (%) (Auto) 15.4 % Lymphocytes (%) (Auto) 44.6 % Monocytes (%) (Auto) 19.3 % Eosinophils (%) (Auto) 15.1 % Basophils (%) (Auto) 5.6 % Neutrophils # (Auto) 0.7 TH/MM3 Lymphocytes # (Auto) 2.1 TH/MM3 Monocytes # (Auto) 0.9 TH/MM3 Eosinophils # (Auto) 0.7 TH/MM3 Basophils # (Auto) 0.3 TH/MM3 CBC Comment AUTO DIFF Differential Total Cells Counted 100 Neutrophils % (Manual) 11 % Band Neutrophils % 1 % Lymphocytes % 48 % Monocytes % 9 % Eosinophils % 16 % Basophils % 14 % Neutrophils # (Manual) 0.6 TH/MM3 Myelocytes 1 % Differential Comment FINAL DIFF MANUAL Platelet Estimate LOW Platelet Morphology Comment ENLARGED Tear Drop Cells 1+ Ovalocytes 1+ Prothrombin Time 14.0 SEC Prothromb Time International Ratio 1.4 RATIO Activated Partial Thromboplast Time 22.6 SEC Blood Urea Nitrogen 21 MG/DL Creatinine 1.63 MG/DL Random Glucose 96 MG/DL Total Protein 5.6 GM/DL Albumin 2.5 GM/DL Calcium Level 8.1 MG/DL Magnesium Level 1.6 MG/DL Alkaline Phosphatase 96 U/L Aspartate Amino Transf (AST/SGOT) 20 U/L Alanine Aminotransferase (ALT/SGPT) 10 U/L Total Bilirubin 1.2 MG/DL Sodium Level 136 MEQ/L Potassium Level 3.5 MEQ/L Chloride Level 104 MEQ/L Carbon Dioxide Level 23.9 MEQ/L Anion Gap 8 MEQ/L Estimat Glomerular Filtration Rate 31 ML/MIN B-Type Natriuretic Peptide 167 PG/ML [facility] Supervised Visit with CHENCHO: Yes Narrative Course The history, exam, and medical decision-making in the associated midlevel provider note were completed with my assistance. I reviewed and agree with the findings presented. I attest that I had a [id number] encounter with the patient on the same day, and personally performed and documented my assessment and findings in the medical record. *My assessment and Findings: This is a 77-year-old female who has a recent diagnosis of myelodysplastic syndrome who had a biopsy at [facility] who presents to the emergency department with increasing shortness of breath and generalized weakness. I spoke to Dr. Reed her primary care physician who sent her from her [facility] for transfusion and admission. The patient evidently has been increasingly symptomatic and Dr. Reed checked her hemoglobin twice this week and it's been 7.1 and 7.2. She did transfuse her two units a week and a half ago when she's already decreased her hemoglobin. She's been trying to get an outpatient appointment with Dr. Norwood but she is concerned that she's deteriorating and she recommended that the patient be admitted for blood transfusion and hematology consultation. On exam the patient is frail, fatigued appearing and her hemoglobin is 7.8. Patient will be admitted for a unit of blood and hematology consultation. Diagnosis Primary Impression: Symptomatic anemia Additional Impression: Chronic pain Qualified Codes: G89.4 - Chronic pain syndrome Condition: Stable Milayd Rees MD Jul 22, 2017 16:13
[2017-07-22 16:42] VITALS: BP 147/68; PULSE 75; RESP 22; TEMP 98; O2SAT 92
--- NOTE | 2017-07-22 20:11 | HHI.HP ---
HPI Service [facility] Primary Care Physician Unknown Admission Diagnosis Symptomatic Anemia/SOB Diagnoses: Travel History International Travel<30 Days: No Contact w/Intl Traveler <30 Da: No Traveled to Known Affected Are: No History of Present Illness History from patient, daughter at the bedside, ER PA, and review of medical records. was sent by rehab doc for transfusion denies chest pains/sob/dizziness/ syncope but daughter stated pt has been weak, almost passing out at times, not participating in therapy, slept most of days hx of MDS recent diagnosis has had transfusions prior was given 2 units before as outpatient at infusion therapy Center but then she was called at the [facility] saying that pt cannot get outpatient infusion today as ordered by Dr Lynn because it was ordered as 3 units and was told to come to ER to be admitted for transfusion no blood in urine or stool but was nauseous no vomiting No other symptoms Review of Systems Except as stated in HPI: all other systems reviewed are Neg Past Family Social History Past Medical History chf- not on water pills afib chronic anticoagulation on coumadin - but coumadin may have been on hold at the rehab ckd esophageal narrowing- needed stretching MDS Past Surgical History esophageal stretching back sx neck sx 2 knee replaced cholecystectomy many others on emr Allergies: Coded Allergies: Sulfa (Sulfonamide Antibiotics) (Unverified Allergy, Intermediate, rash, 07/22/17) acetaminophen (Unverified Allergy, Intermediate, itching, 07/22/17) fentanyl (Unverified Allergy, Intermediate, anxiety, 07/22/17) hydrocodone (Unverified Allergy, Intermediate, itching, 07/22/17) quetiapine (Verified Allergy, Unknown, Twitching, 07/22/17) Family History none that she knows of Social History denies smoking/ etoh / drugs Physical Exam Vital Signs Vital Signs Date Time Temp Pulse Resp B/P (MAP) Pulse Ox O2 Delivery O2 Flow Rate FiO2 07/22/17 16:43 07/22/17 16:42 98.0 75 22 147/68 (94) 92 07/22/17 14:46 93 Room Air 07/22/17 13:28 99.1 76 16 145/68 (93) 96 Room Air Physical Exam GENERAL: This is a well-nourished, well-developed patient, in no apparent distress. SKIN: No rashes, ecchymoses or lesions. Cool and dry. HEAD: Atraumatic. Normocephalic. No temporal or scalp tenderness. EYES: No scleral icterus. No injection or drainage. ENT: Nose without bleeding, purulent drainage or septal hematoma.Airway patent. NECK: Trachea midline. No JVD. Supple, nontender, no meningeal signs. CARDIOVASCULAR: Regular rate and rhythm without murmurs, gallops, or rubs. RESPIRATORY: Clear to auscultation. Breath sounds equal bilaterally. No wheezes , rales, or rhonchi. GASTROINTESTINAL: Abdomen soft, non-tender, nondistended. No guarding. MUSCULOSKELETAL: Extremities without clubbing, cyanosis, or edemaNo calf tenderness. NEUROLOGICAL: Awake and alert. Motor and sensory grossly within normal limits. Normal speech. Laboratory Laboratory Tests Test 07/22/17 13:45 White Blood Count 4.7 Red Blood Count 2.37 Hemoglobin 7.7 Hematocrit 22.2 Mean Corpuscular Volume 93.7 Mean Corpuscular Hemoglobin 32.6 Mean Corpuscular Hemoglobin Concent 34.8 Red Cell Distribution Width 16.1 Platelet Count 100 Mean Platelet Volume 11.8 Neutrophils (%) (Auto) 15.4 Lymphocytes (%) (Auto) 44.6 Monocytes (%) (Auto) 19.3 Eosinophils (%) (Auto) 15.1 Basophils (%) (Auto) 5.6 Neutrophils # (Auto) 0.7 Lymphocytes # (Auto) 2.1 Monocytes # (Auto) 0.9 Eosinophils # (Auto) 0.7 Basophils # (Auto) 0.3 CBC Comment AUTO DIFF Differential Total Cells Counted 100 Neutrophils % (Manual) 11 Band Neutrophils % 1 Lymphocytes % 48 Monocytes % 9 Eosinophils % 16 Basophils % 14 Neutrophils # (Manual) 0.6 Myelocytes 1 Differential Comment FINAL DIFF MANUAL Platelet Estimate LOW Platelet Morphology Comment ENLARGED Tear Drop Cells 1+ Ovalocytes 1+ Prothrombin Time 14.0 Prothromb Time International Ratio 1.4 Activated Partial Thromboplast Time 22.6 Blood Urea Nitrogen 21 Creatinine 1.63 Random Glucose 96 Total Protein 5.6 Albumin 2.5 Calcium Level 8.1 Magnesium Level 1.6 Alkaline Phosphatase 96 Aspartate Amino Transf (AST/SGOT) 20 Alanine Aminotransferase (ALT/SGPT) 10 Total Bilirubin 1.2 Sodium Level 136 Potassium Level 3.5 Chloride Level 104 Carbon Dioxide Level 23.9 Anion Gap 8 Estimat Glomerular Filtration Rate 31 B-Type Natriuretic Peptide 167 Result Diagram: 07/22/175 07/22/17 1345 Caprini VTE Risk Assessment Caprini VTE Risk Assessment: Mod/High Risk (score >= 2) Caprini Risk Assessment Model Point Value = 1 Point Value = 2 Point Value = 3 Point Value = 5 Age 41-60 Minor surgery BMI > 25 kg/m2 Swollen legs Varicose veins or History of unexplained or recurrent spontaneous Oral contraceptives or hormone replacement Sepsis (< 1 month) Serious lung disease, including pneumonia (< 1 month) Abnormal pulmonary function Acute myocardial infarction Congestive heart failure (< 1 month) History of inflammatory bowel disease Medical patient at bed rest Age 61-74 Arthroscopic surgery Major open surgery (> 45 min) Laparoscopic surgery (> 45 min) Malignancy Confined to bed (> 72 hours) Immobilizing plaster cast Central venous access Age >= 75 History of VTE Family history of VTE Factor V Leiden Prothrombin [id number] Lupus anticoagulant Anticardiolipin antibodies Elevated serum homocysteine Heparin-induced thrombocytopenia Other congenital or acquired thrombophilia Stroke (< 1 month) Elective arthroplasty Hip, pelvis, or leg fracture Acute spinal cord injury (< 1 month) Prophylaxis Regimen Total Risk Factor Score Risk Level Prophylaxis Regimen 0-1 Low Early ambulation 2 Moderate Order ONE of the following: *Sequential Compression Device (SCD) *Heparin 5000 units SQ BID 3-4 Higher Order ONE of the following medications: *Heparin 5000 units SQ TID *Enoxaparin/Lovenox 40 mg SQ daily (WT < 150 kg, CrCl > 30 mL/min) *Enoxaparin/Lovenox 30 mg SQ daily (WT < 150 kg, CrCl > 10-29 mL/min) *Enoxaparin/Lovenox 30 mg SQ BID (WT < 150 kg, CrCl > 30 mL/min) AND/OR *Sequential Compression Device (SCD) 5 or more Highest Order ONE of the following medications: *Heparin 5000 units SQ TID (Preferred with Epidurals) *Enoxaparin/Lovenox 40 mg SQ daily (WT < 150 kg, CrCl > 30 mL/min) *Enoxaparin/Lovenox 30 mg SQ daily (WT < 150 kg, CrCl > 10-29 mL/min) *Enoxaparin/Lovenox 30 mg SQ BID (WT < 150 kg, CrCl > 30 mL/min) AND *Sequential Compression Device (SCD) Assessment and Plan Assessment and Plan Impression: symptomatic anemia MDS chf- not on water pills per daughter report afib chronic anticoagulation on coumadin - but coumadin may have been on hold at the rehab ckd esophageal narrowing- needed stretching MDS Plan: transfuse 3 units heme consult . Patient's daughter really wants to talk to the oncologist regarding her MDS and its management. Orders have been written for nursing staff to let the oncologist know about this. lasix in between transfusions resume home meds DVT prophylaxis with SCD/ambulation Discussed Condition With Patient, her daughter, ER Mercedes Plaza MD Jul 22, 2017 20:11
[2017-07-22] MEDS ORDERED: oxyCODONE/ACETAMINOPHEN 5 MG/325 MG TAB PO PRN (20:15)
[2017-07-22] MEDS ORDERED: FUROSEMIDE 20 MG/2 ML VIAL IV PUSH ONE (20:15)
[2017-07-22] MEDS ORDERED: GABAPENTIN 300 MG CAP PO SCH (21:00)
[2017-07-22] MEDS: MORPHINE SULFATE 15 MG CONTROLLED RELEASE TAB PO SCH (21:20)
[2017-07-22 22:59] VITALS: BP 130/60; PULSE 75; RESP 18; TEMP 98.3; O2SAT 98
[2017-07-22] MEDS: SODIUM CHLORIDE 0.9% FLUSH 10 ML FLUSH IV FLUSH SCH (23:28)
[2017-07-22 23:36] VITALS: BP 138/60; PULSE 78; RESP 16; TEMP 96.3
[2017-07-22 23:56] VITALS: BP 122/58; PULSE 74; RESP 18; TEMP 96.3; O2SAT 98
[2017-07-23] VITALS (13 sets, daily range): BP systolic 111–146; BP diastolic 56–77; PULSE 66–78; RESP 16–20; TEMP 96.1–99.9; O2SAT 93–100
[2017-07-23] MEDS ORDERED: PANTOPRAZOLE SOD 20 MG DELAYED RELEASE TAB PO SCH (09:00)
[2017-07-23] MEDS ORDERED: CITALOPRAM HYDROBROMIDE 20 MG TAB PO SCH (09:00)
[2017-07-23] MEDS: MORPHINE SULFATE 15 MG CONTROLLED RELEASE TAB PO SCH (09:27)
[2017-07-23] MEDS: SODIUM CHLORIDE 0.9% FLUSH 10 ML FLUSH IV FLUSH SCH (09:27)
--- NOTE | 2017-07-23 13:29 | HHI.PR ---
Subjective Remarks Follow-up for symptomatically anemia Patient has no complaints. Deny any chest pain, shortness of breathing, fatigue , lightheadedness or dizziness. She stated she feels much better. Patient already transfused. She stated that she has good urine output. Objective Vitals Vital Signs Date Time Temp Pulse Resp B/P (MAP) Pulse Ox O2 Delivery O2 Flow Rate FiO2 07/23/17 12:18 98.5 71 20 123/62 (82) 100 07/23/17 11:26 98.2 68 17 99 07/23/17 09:48 73 18 122/58 98 07/23/17 08:20 97.8 73 18 142/62 98 07/23/17 07:41 96.6 76 18 135/72 (93) 99 07/23/17 07:32 96.6 76 18 135/72 99 07/23/17 07:32 96.6 76 18 135/72 99 07/23/17 05:40 97.9 78 18 146/77 (100) 93 07/23/17 03:57 96.3 72 16 113/65 100 07/23/17 03:40 96.1 66 16 138/61 100 07/23/17 01:15 99.9 66 18 111/56 (74) 99 07/22/17 23:56 96.3 74 18 122/58 98 07/22/17 23:36 96.3 78 16 138/60 07/22/17 22:59 98.3 75 18 130/60 (83) 98 07/22/17 16:43 07/22/17 16:42 98.0 75 22 147/68 (94) 92 07/22/17 14:46 93 Room Air 07/22/17 13:28 99.1 76 16 145/68 (93) 96 Room Air I/O 07/22/17 07/22/17 07/22/17 07/23/17 07/23/17 07/23/17 07:00 15:00 23:00 07:00 15:00 23:00 Intake Total 445 ml 830 ml Output Total 1150 ml Balance 445 ml -320 ml Intake Packed Cells 400 ml 800 ml Blood Product IV Normal Saline Flush 45 ml 30 ml Output Urine Total 1150 ml # Voids 1 Result Diagram: 07/22/17 1345 07/22/17 1345 Objective Remarks GENERAL: in NAD CARDIOVASCULAR: Regular rate and rhythm without murmurs, gallops, or rubs. RESPIRATORY: Breath sounds equal bilaterally. No accessory muscle use. GASTROINTESTINAL: Abdomen soft, non-tender, nondistended. MUSCULOSKELETAL: No cyanosis, or edema. BACK: Nontender without obvious deformity. No CVA tenderness. Medications and IVs Current Medications Sodium Chloride (NS Flush) 2 ml UNSCH PRN IVF FLUSH AFTER USING IV ACCESS; Start 07/22/17 at 13:45; Stop 07/22/17 at 17:18; Status DC Sodium Chloride 250 ml @ 15 mls/hr ONCE ONCE IV Last administered on 23:29; Start 07/22/17 at 14:45; Stop 07/23/17 at 07:24; Status DC Sodium Chloride (NS Flush) 2 ml UNSCH PRN IV FLUSH FLUSH AFTER USING IV ACCESS ; Start 07/22/17 at 15:45 Sodium Chloride (NS Flush) 2 ml BID IV FLUSH Last administered on 07/22/17 23 :28; Start 07/22/17 at 21:00 Naloxone HCl (Narcan Inj) 0.4 mg UNSCH PRN IV PUSH SEE LABEL COMMENTS; Start 07/22/17 at 15:45 Furosemide (Lasix Inj) 20 mg ONCE ONCE IV PUSH Last administered on 03:29; Start 07/22/17 at 20:15; Stop 07/22/17 at 20:34; Status DC Citalopram Hydrobromide (CeleXA) 20 mg DAILY PO Last administered on 09:27; Start 07/23/17 at 09:00 Gabapentin (Neurontin) 300 mg HS PO Last administered on 07/22/17 21:20; Start 07/22/17 at 21:00 Morphine Sulfate (Oramorph Sr) 30 mg BID PO Last administered on 07/23/17 09: 27; Start 07/22/17 at 21:00 Oxycodone/ Acetaminophen (Percocet 5-325 Mg) 1 tab TID PRN PO PAIN SCALE 1-10 ; Start 07/22/17 at 20:15 Pantoprazole Sodium (Protonix) 20 mg DAILY PO Last administered on 07/23/17 09:27; Start 07/23/17 at 09:00 A/P Assessment and Plan 77-year-old female who presented with symptomatic anemia Symptomatic anemia -Hemoglobin 7.7 on admission. Pending posttransfusion hemoglobin. -Status post transfused 3 units packed red blood cells. -Symptoms improved after transfusion. -[employer]inner consulted. Renal insufficiency -Most recent creatinine 0.9 on 05/05/2017. Today creatinine 1.63. -Will repeat creatinine. Patient does have a history of CHF. Will need to be cautious with fluid. She did receive Lasix between transfusion. Angela Gifford MD Jul 23, 2017 13:29
[2017-07-23 13:32] LABS: AUTOMATED NEUTROPHIL # 0.1 TH/MM3 (1.8-7.7); BASOPHIL # 0.4 TH/MM3 (0-0.2); BASOPHIL % 11.7 % (0.0-2.0); EOSINOPHIL # 0.8 TH/MM3 (0-0.4); EOSINOPHIL % 20.9 % (0.0-4.0); HEMATOCRIT 28.1 % (35.0-46.0); LYMPH % 37.3 % (9.0-44.0); LYMPHOCYTE # 1.4 TH/MM3 (1.0-4.8); MEAN CORPUSCULAR HEMOGLOBIN 30.9 PG (27.0-34.0); MEAN CORPUSCULAR HGB CONC 34.7 % (32.0-36.0); MONO % 26.2 % (0.0-8.0); NEUT % 3.9 % (16.0-70.0); PLATELET COUNT 42 TH/MM3 (150-450); RED BLOOD COUNT 3.16 MIL/MM3 (4.00-5.30); RED CELL DISTRIBUTION WIDTH 17.6 % (11.6-17.2); WHITE BLOOD COUNT 3.8 TH/MM3 (4.0-11.0)
[2017-07-23 13:51] LABS: BICARBONATE 27.9 MEQ/L (21.0-32.0); POTASSIUM 3.4 MEQ/L (3.5-5.1)
--- NOTE | 2017-07-23 13:59 | EKG ---
Date Performed: 07/22/2017 Time Performed: 15:14:02 PTAGE: 77 years EKG: ATRIAL FIBRILLATION LOW QRS VOLTAGE IN PRECORDIAL LEADS NONSPECIFIC T-WAVE ABNORMALITY ABNO RMAL RHYTHM ECG Compared to PREVIOUS TRACING nonspecific ST segment changes are better PREVIOUS TRACIN02/18/2017 04.01 DOCTOR: Delmer Ruth Interpretating Date/Time 07/23/2017 13:58:07
[2017-07-23 14:18] LABS: HEMO FLAGS AUTO DIFF
[2017-07-23 14:21] LABS: BANDS 2 % (0-6); BASOPHILS 1 % (0-2); BLASTS 1 % (0-0); CORRECTED NUCLEATED RBC 1 /100 WBC (0-0); EOSINOPHILS 1 % (0-4); MYELOCYTES 2 % (0-0); NEUTROPHIL # MANUAL DIFF 2.5 TH/MM3 (1.8-7.7); PLATELET ESTIMATE SMEAR LOW (NORMAL); PLATELET MORPHOLOGY NORMAL (NORMAL); POLYS (SEG NEUTROPHILS) 62 % (16-70); SCAN/DIFF FINAL DIFF MANUAL; WBC DIFF SAMPLE 100
[2017-07-23] MEDS ORDERED: POTASSIUM CHLORIDE 10 MEQ CONTROLLED RELEASE TAB PO ONE (18:45)
== END 2017-07-23 20:38 | disposition short-term general hospital (02) ==
LOC: NEPC 13:01 → NEDA 15:42 → NEPFCDU 16:32
PROVIDERS: ADMIT Family Medicine; ATTEND Family Medicine
DX: D64.9 Anemia, unspecified (principal); G89.4 Chronic pain syndrome; R53.1 Weakness; R06.02 Shortness of breath; N28.9 Disorder of kidney and ureter, unspecified; I11.9 Hypertensive heart disease without heart failure; I48.91 Unspecified atrial fibrillation; M54.5 Low back pain; K21.9 Gastro-esophageal reflux disease without esophagitis; G62.9 Polyneuropathy, unspecified; F32.9 Major depressive disorder, single episode, unspecified; M19.90 Unspecified osteoarthritis, unspecified site; H91.90 Unspecified hearing loss, unspecified ear; Z79.01 Long term (current) use of anticoagulants; Z79.899 Other long term (current) drug therapy
CPT/HCPCS: 36430; 71010; 80048; 80053; 83735; 83880; 85007; 85027; 85610; 85730; 86850; 86900; 86901; 86920; 93005; 96374; 97161; 99285; G0378; G8987; G8988; J1940; J7050; P9016

== ENCOUNTER 2017-09-02 20:23 | Inpatient (IN) | payer MEDICARE, OTHER ==
[~2017-09-02] VITALS: Ht 160 cm; Wt 98.7 kg
[2017-09-02 20:32] VITALS: BP 187/86; PULSE 88; RESP 18; TEMP 98.7; O2SAT 96
[2017-09-02] MEDS ORDERED: SODIUM CHLORIDE 0.9% FLUSH 10 ML FLUSH IVF PRN (20:45)
[2017-09-02] MEDS ORDERED: SODIUM CHLOR 0.9% 250 ML INJ 250 ML IV ONE ×3 (20:45→22:00)
[2017-09-02 20:53] VITALS: BP 187/88
--- NOTE | 2017-09-02 20:58 | PD ---
HPI Chief Complaint: Abnormal Results Time Seen by Provider: 20:40 Travel History International Travel<30 days: No Contact w/Intl Traveler<30days: No Traveled to known affect area: No History of Present Illness HPI 69-year-old female with high grade myelodysplastic disorder, leukemia, anemia, CHF [facility] shortness of breath decreasing O2 saturation and hemoglobin of 6.1. Patient has [facility] in a local [facility] since June after being diagnosed with mild dysplastic disorder and leukemia with severe anemia requiring weekly blood transfusions. Patient also has history of atrial fibrillation and CHF. Patient also has history of lower extremity lymphedema. Patient is been getting progressively weaker and it has been determined that she will need hospice care. She has not been determined candidate for chemotherapy. Patient's had no recent fever or chills. Patient has been on supplemental oxygen since June typically to the 2 L/M nasal cannula but more recently has had to be increased to 4 L per minute nasal cannula due to dyspnea at rest as well as with exertion. Patient has also been noted to have marked thrombocytopenia. Patient's had no recent febrile illness. Patient here denies any current shortness of breath or chest pain also denies any abdominal pain. Patient has not noted any increased lower extremity edema which is marked but states this is her baseline. Patient denies any pain at this time. PFSH Past Medical History Narrative Medical Coumadin therapy, atrial fibrillation, COPD, CHF, lymphedema, mild dysplastic disorder, leukemia, hypertension; hysterectomy bone marrow biopsy; nursing notes reviewed Hx Anticoagulant Therapy: Yes (COUMADIN) Arthritis: Yes Atrial Fibrillation: Yes Depression: Yes Heart Rhythm Problems: Yes Cancer: Yes (MDS) Cardiovascular Problems: Yes Congestive Heart Failure: No COPD: Yes Diabetes: No Diminished Hearing: Yes (once in a while) Endocrine: No Gastrointestinal Disorders: Yes (Diverticulosis noted 02/17/17) GERD: Yes Hiatal Hernia: Yes Hypertension: Yes Immune Disorder: No Implanted Vascular Access Dvce: Yes Musculoskeletal: Yes Neurologic: No Psychiatric: No Reproductive: Yes (Hysterectomy) Respiratory: Yes Tetanus Vaccination: < 5 Years Influenza Vaccination: Yes Past Surgical History Gynecologic Surgery: Yes (hysterectomy 1971) Hysterectomy: Yes Joint Replacement: Yes (bilateral knee) Other Surgery: Yes Social History Alcohol Use: No Tobacco Use: No Substance Use: No Allergies-Medications (Allergen,Severity, Reaction): Coded Allergies: Sulfa (Sulfonamide Antibiotics) (Unverified Allergy, Intermediate, rash, 07/22/17) acetaminophen (Unverified Allergy, Intermediate, itching, 07/22/17) fentanyl (Unverified Allergy, Intermediate, anxiety, 07/22/17) hydrocodone (Unverified Allergy, Intermediate, itching, 07/22/17) quetiapine (Verified Allergy, Unknown, Twitching, 07/22/17) Reported Meds & Prescriptions Reported Meds & Active Scripts Active Reported Citalopram (Citalopram Hydrobromide) 20 Mg Tab 20 Mg PO DAILY Clonazepam 0.5 Mg Tab 0.5 Mg PO BID Ms Contin (Morphine Sulfate) 15 Mg Tab 30 Mg PO BID Mucinex DM (Dextromethorphan-Guaifenesin) 30-600 Mg Tab 2 Tab PO BID PRN Gabapentin 300 Mg Cap 300 Mg PO HS Percocet (Oxycodone-Acetaminophen) 5-325 mg Tab 1 Tab PO TID PRN Omeprazole 20 Mg Cap 1 Cap PO DAILY Review of Systems Except as stated in HPI: all other systems reviewed are Neg Physical Exam Narrative GENERAL: Well-developed obese female in no acute distress no respiratory distress SKIN: Warm and dry, jaundice with pallor. HEAD: Normocephalic. EYES: Mild scleral icterus. No injection or drainage. NECK: Supple, trachea midline. No JVD or lymphadenopathy. CARDIOVASCULAR: Regular rate and rhythm without murmurs, gallops, or rubs. RESPIRATORY: Breath sounds equal bilaterally. No accessory muscle use. GASTROINTESTINAL: Abdomen soft, non-tender, nondistended. MUSCULOSKELETAL: No cyanosis, bilateral 3+ pitting lower extremity and pedal edema. BACK: Nontender without obvious deformity. No CVA tenderness. Data Data Last Documented VS Vital Signs Date Time Temp Pulse Resp B/P (MAP) Pulse Ox O2 Delivery O2 Flow Rate FiO2 09/02/17 20:53 187/88 (121) 09/02/17 20:44 Nasal Cannula 4.00 09/02/17 20:44 99 09/02/17 20:32 98.7 88 18 Orders Orders Complete Blood Count With Diff (09/02/17 20:40) Comprehensive Metabolic Panel (09/02/17 20:40) B-Type Natriuretic Peptide (09/02/17 20:40) Act Partial Throm Time (Ptt) (09/02/17 20:40) Prothrombin Time / Inr (Pt) (09/02/17 20:40) Magnesium (Mg) (09/02/17 20:40) Ckmb (Isoenzyme) Profile (09/02/17 20:40) Troponin I (09/02/17 20:40) Urinalysis - C+S If Indicated (09/02/17 20:40) Blood Culture (09/02/17 20:40) Iv Access Insert/Monitor (09/02/17 20:40) Electrocardiogram (09/02/17 20:40) Ecg Monitoring (09/02/17 20:40) Oximetry (09/02/17 20:40) Oxygen Administration (09/02/17 20:40) Chest, Single Ap (09/02/17 20:40) Sodium Chloride 0.9% Flush (Ns Flush) (09/02/17 20:45) Red Blood Cells (Rbc) (09/02/17 20:40) Blood Product Administration (09/02/17 20:40) Sodium Chlor 0.9% 250 Ml Inj (Ns 250 Ml (09/02/17 20:45) Type And Screen (09/02/17 20:40) Red Blood Cells (Rbc) (09/02/17 21:45) Blood Product Administration (09/02/17 21:45) Sodium Chlor 0.9% 250 Ml Inj (Ns 250 Ml (09/02/17 21:45) Platelet Pheresis (09/02/17 22:00) Blood Product Administration (09/02/17 22:00) Sodium Chlor 0.9% 250 Ml Inj (Ns 250 Ml (09/02/17 22:00) Furosemide Inj (Lasix Inj) (09/02/17 22:15) Admit Order (Ed Use Only) (09/02/17 ) Cooler Tender / Telemetry [place].Q8H (09/02/17 22:42) Activity Bed Rest (09/02/17 22:42) Notify Dr: Other (09/02/17 22:42) Labs Laboratory Tests Test 09/02/17 20:50 09/02/17 21:46 White Blood Count 4.8 TH/MM3 Red Blood Count 2.00 MIL/MM3 Hemoglobin 6.0 GM/DL Hematocrit 17.2 % Mean Corpuscular Volume 85.9 FL Mean Corpuscular Hemoglobin 30.0 PG Mean Corpuscular Hemoglobin Concent 35.0 % Red Cell Distribution Width 16.2 % Platelet Count 12 TH/MM3 Mean Platelet Volume 9.2 FL CBC Comment AUTO DIFF Prothrombin Time 15.2 SEC Prothromb Time International Ratio 1.5 RATIO Activated Partial Thromboplast Time 29.1 SEC Blood Urea Nitrogen 27 MG/DL Creatinine 1.44 MG/DL Random Glucose 131 MG/DL Total Protein 6.8 GM/DL Albumin 3.0 GM/DL Calcium Level 8.3 MG/DL Magnesium Level 2.3 MG/DL Alkaline Phosphatase 65 U/L Aspartate Amino Transf (AST/SGOT) 15 U/L Alanine Aminotransferase (ALT/SGPT) 6 U/L Total Bilirubin 1.5 MG/DL Sodium Level 137 MEQ/L Potassium Level 3.5 MEQ/L Chloride Level 99 MEQ/L Carbon Dioxide Level 33.3 MEQ/L Anion Gap 5 MEQ/L Estimat Glomerular Filtration Rate 35 ML/MIN Total Creatine Kinase 31 U/L Troponin I 0.02 NG/ML B-Type Natriuretic Peptide 294 PG/ML Urine Color YELLOW Urine Turbidity HAZY Urine pH 7.0 Urine Specific Ralph 1.012 Urine Protein 30 mg/dL Urine Glucose (UA) NEG mg/dL Urine Ketones NEG mg/dL Urine Occult Blood SMALL Urine Nitrite NEG Urine Bilirubin NEG Urine Urobilinogen 2.0 MG/DL Urine Leukocyte Esterase NEG Urine RBC 3 /hpf Urine WBC 5 /hpf Urine Squamous Epithelial Cells 1 /hpf Urine Bacteria RARE /hpf Urine Mucus FEW /lpf Microscopic Urinalysis Comment CULT NOT INDICATED MDM Medical Decision Making Medical Screen Exam Complete: Yes Emergency Medical Condition: Yes Medical Record Reviewed: Yes Interpretation(s) EKG: Atrial fibrillation rate 82 QS septally age-indeterminate no acute ST elevation or injury pattern; artifact is present Differential Diagnosis Anemia, thrombocytopenia, pancytopenia, CHF, hepatic encephalopathy, liver failure, sepsis Narrative Course Patient placed on monitoring manager with continuous pulse oximetry on 4 L/m nasal cannula saturations 99% EKG performed which shows atrial fibrillation with controlled ventricular rate in no acute ST elevation or injury pattern change age-indeterminate septal infarct; 2 units of packed cells ordered. Chest x-ray shows acid congestion with history of CHF one-time dose of Lasix administered as it is patient will need blood transfusion Hemoglobin is 6.02 units of packed cells 7 ordered and patient is identified to have platelet count of 12 will also order 1 unit of platelets for transfusion Call placed to medicine service Patient discussed with on-call resident Dr. Gardner --- admit to Dr Pope Physician Communication Physician Communication discussed with medicine service Dr Gardner Diagnosis Primary Impression: Symptomatic anemia Additional Impressions: Thrombocytopenia History of chronic CHF Myelodysplasia (myelodysplastic syndrome) Ellen Fields MD Sep 02, 2017 20:58
--- NOTE | 2017-09-02 21:11 | RADRPT ---
EXAM DATE/TIME: 09/02/2017 20:46 [facility] COMPARISON: CHEST SINGLE AP, July 22, 2017, 15:04. INDICATIONS : Short of breath. MEDICAL HISTORY : Cardiovascular disease. Hypertension. Hernia, hiatal. SURGICAL HISTORY : Hysterectomy. ENCOUNTER: Initial ACUITY: 1 day PAIN SCORE: 0/10 LOCATION: Bilateral chest FINDINGS: The heart is enlarged. Bibasilar patchy opacities are noted consistent with probable pneumonia. Clini kierra correlation is recommended. Mild central pulmonary vasculature congestion is also noted. Degenera tive changes are noted throughout the thoracic spine. CONCLUSION: 1. Bibasilar patchy opacities consistent with probable pneumonia. Clinical correlation is recommended . 2. Cardiomegaly and mild central pulmonary vascular congestion. 1. Clayton Cruz MD on September 02, 2017 at 21:07 Board Certified Radiologist. This report was verified electronically.
[2017-09-02 21:31] LABS: INTERNATIONAL NORMALIZED RATIO 1.5 RATIO; PROTHROMBIN TIME - PATIENT 15.2 SEC (9.8-11.6)
[2017-09-02 21:37] LABS: MEAN CELL VOLUME 85.9 FL (80.0-100.0); MEAN PLATELET VOLUME 9.2 FL (7.0-11.0); RED CELL DISTRIBUTION WIDTH 16.2 % (11.6-17.2); WHITE BLOOD COUNT 4.8 TH/MM3 (4.0-11.0)
[2017-09-02 21:43] LABS: BICARBONATE 33.3 MEQ/L (21.0-32.0); BLOOD UREA NITROGEN 27 MG/DL (7-18); CALCIUM 8.3 MG/DL (8.5-10.1); CHLORIDE 99 MEQ/L (98-107); CREATININE 1.44 MG/DL (0.50-1.00); GLOMERULAR FILTRATION RATE 35 ML/MIN (>89); GLUCOSE,RANDOM 131 MG/DL (74-106); MAGNESIUM 2.3 MG/DL (1.5-2.5); SODIUM (NA) 137 MEQ/L (136-145)
[2017-09-02 21:45] LABS: ALT (GPT) 6 U/L (10-53); AST (GOT) 15 U/L (15-37); HEMATOCRIT 17.2 % (35.0-46.0); PLATELET COUNT 12 TH/MM3 (150-450)
[2017-09-02 21:49] LABS: ALKALINE PHOSPHATASE 65 U/L (45-117); TOTAL BILIRUBIN ADULT 1.5 MG/DL (0.2-1.0); TOTAL PROTEIN 6.8 GM/DL (6.4-8.2); TROPONIN I 0.02 NG/ML (0.02-0.05)
[2017-09-02 22:02] LABS: BACTERIA, URINE RARE /hpf; BILIRUBIN, URINE NEG (NEG); BLOOD, URINE SMALL (NEG); GLUCOSE,URINE NEG (NEG); KETONE, URINE NEG (NEG); MUCUS URINE FEW /lpf (OCC); NITRITE,URINE NEG (NEG); SQUAMOUS EPITHELIAL CELL URINE 1 /hpf (0-5); URINE COLOR YELLOW (YELLW/STRAW); URINE LEUKOCYTE ESTERASE NEG (NEG)
[2017-09-02] MEDS ORDERED: FUROSEMIDE 40 MG/4 ML VIAL IV PUSH ONE (22:15)
--- NOTE | 2017-09-02 22:57 | HHI.HP ---
[facility] Service Family Medicine Primary Care Physician See Rodriguez MD Admission Diagnosis symptomatic anemia; thrombocytopenia; myelodysplasia;chf Diagnoses: International Travel<30 Days: No Contact w/Intl Traveler<30days: No Known Affected Area: No History of Present Illness 77-year-old female, past medical history of MDD, presents with symptomatic anemia. Her hemoglobin is monitored closely and she is transfused frequently to treat symptoms of her MDD, and she was found to have a hemoglobin of 6.0 yesterday and sent to the ED today. Per nursing at her rehabilitation center she has also had increased shortness of breath and fatigue over the last month. Her shortness of breath has seemed to get progressively worse. She usually does get short of breath with activity, however lately she is even getting short of breath while sitting. She is not able to lie flat to sleep because of her severe shortness of breath. She denies any chest pain. She denies any recent respiratory infections. She denies any productive sputum or recent fevers/ chills. She denies any dizziness. The daughter is present and states that she has seemed to be more confused over the past week. Daughter states this commonly happens when her mom's hemoglobin is low and then she doesn't get transfused and her mental status seems to improve. Review of Systems Constitutional: DENIES: Fever, Weight loss, Chills Endocrine: DENIES: Heat/cold intolerance, Polyuria Eyes: DENIES: Vision loss, Photosensitivity Respiratory: DENIES: Cough, Wheezing Gastrointestinal: COMPLAINS OF: Constipation (yes recently), Nausea (zofran helps), DENIES: Black stools, Bloody stools, Diarrhea, Vomiting Musculoskeletal: DENIES: Joint Swelling Integumentary: DENIES: Rash Neurologic: DENIES: Headache Past Family Social History Past Medical History MDD CHF, diastolic failure Chonic back and leg pain HTN Borderline DMII Past Surgical History Back surgery Bilateral knee replacement Esophageal dilation Hysterectomy Allergies: Coded Allergies: Sulfa (Sulfonamide Antibiotics) (Unverified Allergy, Intermediate, rash, 07/22/17) acetaminophen (Unverified Allergy, Intermediate, itching, 07/22/17) fentanyl (Unverified Allergy, Intermediate, anxiety, 07/22/17) hydrocodone (Unverified Allergy, Intermediate, itching, 07/22/17) quetiapine (Verified Allergy, Unknown, Twitching, 07/22/17) Family History non-contributory Social History custodial since 07/02, comfortable and safe there, meeting on th/thu for hospice non-smoker, no drinking, no drugs Physical Exam Vital Signs Vital Signs Date Time Temp Pulse Resp B/P (MAP) Pulse Ox O2 Delivery O2 Flow Rate FiO2 09/02/17 20:53 187/88 (121) 09/02/17 20:44 Nasal Cannula 4.00 09/02/17 20:44 99 Nasal Cannula 4.00 09/02/17 20:32 98.7 88 18 187/86 (119) 96 Physical Exam GENERAL: This is a well-nourished, well-developed patient, in no apparent distress. SKIN: No rashes, ecchymoses or lesions. Cool and dry. Jaundiced and pale HEAD: Atraumatic. Normocephalic. No temporal or scalp tenderness. EYES: Pupils equal round and reactive. Extraocular motions intact. No scleral icterus. No injection or drainage. ENT: Nose without bleeding, purulent drainage or septal hematoma. Throat without erythema, tonsillar hypertrophy or exudate. Uvula midline. Airway patent. NECK: Trachea midline. No JVD or lymphadenopathy. Supple, nontender, no meningeal signs. CARDIOVASCULAR: Regular rate and rhythm without murmurs, gallops, or rubs. RESPIRATORY: Expiratory wheezes auscultated bilaterally Breath sounds equal bilaterally. No wheezes, rales, or rhonchi. GASTROINTESTINAL: Abdomen soft, non-tender, nondistended. No hepato-splenomegaly , or palpable masses. No guarding. MUSCULOSKELETAL: Right lower extremity and left lower extremity was 3+ non- pitting edema. No joint tenderness, effusion, or erythema noted. No calf tenderness. NEUROLOGICAL: Awake and alert. Cranial nerves II through XII intact. Motor and sensory grossly within normal limits. Five out of 5 muscle strength in all muscle groups. Normal speech. Laboratory Laboratory Tests Test 09/02/17 20:50 09/02/17 21:46 White Blood Count 4.8 Red Blood Count 2.00 Hemoglobin 6.0 Hematocrit 17.2 Mean Corpuscular Volume 85.9 Mean Corpuscular Hemoglobin 30.0 Mean Corpuscular Hemoglobin Concent 35.0 Red Cell Distribution Width 16.2 Platelet Count 12 Mean Platelet Volume 9.2 CBC Comment AUTO DIFF Prothrombin Time 15.2 Prothromb Time International Ratio 1.5 Activated Partial Thromboplast Time 29.1 Blood Urea Nitrogen 27 Creatinine 1.44 Random Glucose 131 Total Protein 6.8 Albumin 3.0 Calcium Level 8.3 Magnesium Level 2.3 Alkaline Phosphatase 65 Aspartate Amino Transf (AST/SGOT) 15 Alanine Aminotransferase (ALT/SGPT) 6 Total Bilirubin 1.5 Sodium Level 137 Potassium Level 3.5 Chloride Level 99 Carbon Dioxide Level 33.3 Anion Gap 5 Estimat Glomerular Filtration Rate 35 Total Creatine Kinase 31 Troponin I 0.02 B-Type Natriuretic Peptide 294 Urine Color YELLOW Urine Turbidity HAZY Urine pH 7.0 Urine Specific Clever 1.012 Urine Protein 30 Urine Glucose (UA) NEG Urine Ketones NEG Urine Occult Blood SMALL Urine Nitrite NEG Urine Bilirubin NEG Urine Urobilinogen 2.0 Urine Leukocyte Esterase NEG Urine RBC 3 Urine WBC 5 Urine Squamous Epithelial Cells 1 Urine Bacteria RARE Urine Mucus FEW Microscopic Urinalysis Comment CULT NOT INDICATED Date/Time Source Procedure Growth Status 09/02/17 20:50 Blood Peripheral Aerobic Blood Culture Pending Received 09/02/17 20:50 Blood Peripheral Anaerobic Blood Culture Pending Received Result Diagram: 09/02/17204909/02/172049 Caprini VTE Risk Assessment Caprini VTE Risk Assessment: No/Low Risk (score <= 1) Caprini Risk Assessment Model Point Value = 1 Point Value = 2 Point Value = 3 Point Value = 5 Age 41-60 Minor surgery BMI > 25 kg/m2 Swollen legs Varicose veins or History of unexplained or recurrent spontaneous Oral contraceptives or hormone replacement Sepsis (< 1 month) Serious lung disease, including pneumonia (< 1 month) Abnormal pulmonary function Acute myocardial infarction Congestive heart failure (< 1 month) History of inflammatory bowel disease Medical patient at bed rest Age 61-74 Arthroscopic surgery Major open surgery (> 45 min) Laparoscopic surgery (> 45 min) Malignancy Confined to bed (> 72 hours) Immobilizing plaster cast Central venous access Age >= 75 History of VTE Family history of VTE Factor V Leiden Prothrombin [id number] Lupus anticoagulant Anticardiolipin antibodies Elevated serum homocysteine Heparin-induced thrombocytopenia Other congenital or acquired thrombophilia Stroke (< 1 month) Elective arthroplasty Hip, pelvis, or leg fracture Acute spinal cord injury (< 1 month) Prophylaxis Regimen Total Risk Factor Score Risk Level Prophylaxis Regimen 0-1 Low Early ambulation 2 Moderate Order ONE of the following: *Sequential Compression Device (SCD) *Heparin 5000 units SQ BID 3-4 Higher Order ONE of the following medications: *Heparin 5000 units SQ TID *Enoxaparin/Lovenox 40 mg SQ daily (WT < 150 kg, CrCl > 30 mL/min) *Enoxaparin/Lovenox 30 mg SQ daily (WT < 150 kg, CrCl > 10-29 mL/min) *Enoxaparin/Lovenox 30 mg SQ BID (WT < 150 kg, CrCl > 30 mL/min) AND/OR *Sequential Compression Device (SCD) 5 or more Highest Order ONE of the following medications: *Heparin 5000 units SQ TID (Preferred with Epidurals) *Enoxaparin/Lovenox 40 mg SQ daily (WT < 150 kg, CrCl > 30 mL/min) *Enoxaparin/Lovenox 30 mg SQ daily (WT < 150 kg, CrCl > 10-29 mL/min) *Enoxaparin/Lovenox 30 mg SQ BID (WT < 150 kg, CrCl > 30 mL/min) AND *Sequential Compression Device (SCD) Assessment and Plan Assessment and Plan 69-year-old female, past medical history of myelodysplastic syndrome, presents with symptomatic anemia and hemoglobin of 6. Code Status DNR Problem List: (1) Myelodysplasia (myelodysplastic syndrome) ICD Codes: D46.9 - Myelodysplastic syndrome, unspecified Status: Acute Plan: Severe MDS, possible progression to acute myelogenous leukemia? Complications of MDS: Anemia, bleeding, infection Transfuse as indicated under anemia and thrombocytopenia Follow-up with oncologist Dr. Norwood, consult placed Hold anticoagulation at this time (2) Congestive heart failure ICD Codes: I50.9 - Heart failure, unspecified Status: Chronic Plan: Per previous admission, CHF with diastolic dysfunction Echocardiogram 02/16: EF 55-60% Last evaluated at [facility] by Dr. Hernandez BNP elevated to 294, from 167 on07/19 Chest x-ray: Bibasilar opacities, cardiomegaly, central pulmonary vascular congestion - Confirmed with radiologist overnight, indicative of fluid overload and CHF Fluid restriction to 1500 mL Patient to sit up in bed or chair with legs hanging down Strict I's and O's Daily weights Heart healthy diet Follow up echo Follow-up troponins Follow up EKGs Diuresis with Lasix 40 IV twice a day (3) Hypertension ICD Codes: I10 - Essential (primary) hypertension Status: Acute Plan: High blood pressures in past per patient, not on home medication Vasotec when necessary for blood pressure 180/100 -Creatinine stable from previous visits at 1.4 f/u blood pressures Follow-up kidney function (4) Atrial fibrillation ICD Codes: I48.91 - Unspecified atrial fibrillation Status: Chronic Plan: Hx of Afibb, but no medications needed per patient f/u EKG's f/u telemetry (5) Atypical chest pain ICD Codes: R07.89 - Other chest pain Status: Acute Plan: Patient with chest pain and shortness of breath on inspiration, progressive swelling of legs, possible immobility Follow-up D-Dimer, creatinine 1.4 We'll consider CTA patient becomes hemodynamically unstable (6) Acute kidney injury ICD Codes: N17.9 - Acute kidney failure, unspecified Status: Acute Plan: Creatinine 1.44, from 1.5 in July Last normal creatinine was in May, at 0.90 Dehydration versus chronic kidney disease versus PARTH Follow-up creatinine Continue cautious IV fluid hydration, in light of CHF (7) Anemia ICD Codes: D64.9 - Anemia, unspecified Status: Acute Plan: Hemoglobin of 6.0, from 6.9 week ago Baseline of 7.2-8.7 in 2017 Transfusion goal of 8.0 with cardiac morbidity s/p 1 U FFP Transfuse 1 U PRBCs, caution with fluid overload in CHF f/u post-transfusion CBC (8) Thrombocytopenia ICD Codes: D69.6 - Thrombocytopenia, unspecified Status: Chronic Plan: Complication of MDS Platelets 12, from 20 last week Baseline 258 in May Patient has high bleeding risk Hold anticoagulation, hold NSAIDs (9) Pre-diabetes ICD Codes: R73.09 - Other abnormal glucose Status: Acute Plan: Follow-up blood sugars Follow up hemoglobin A1c Cover with low-dose insulin sliding scale (10) Anxiety and depression ICD Codes: F41.9 - Anxiety disorder, unspecified; F32.9 - Major depressive disorder, single episode, unspecified Status: Acute Plan: Continue clonazepam 0.5mg twice a day Continue gabapentin 300mg by mouth at bedtime Continue citalopram 20mg daily (11) fen/ppx Status: Acute Plan: Fluids: Encourage by mouth fluid intake Electrolytes: Follow-up BMP and replete accordingly Nutrition: Heart healthy diet GI prophylaxis: Continue omeprazole daily DVT prophylaxis: SCDs Physician Certification 2 Midnight Certification Type: Admission for Inpatient Services Order for Inpatient Services The services are ordered in accordance with Medicare regulations or non- Medicare payer requirements, as applicable. In the case of services not specified as inpatient-only, they are appropriately provided as inpatient services in accordance with the 2-midnight benchmark. Estimated LOS (days): 2 days is the estimated time the patient will need to remain in the hospital, assuming treatment plan goals are met and no additional complications. Post-Hospital Plan: Hospice Ester Tai MD R2 Sep 02, 2017 22:57
[2017-09-02 23:01] VITALS: BP 181/79; PULSE 79; RESP 18; TEMP 98.2; O2SAT 100
[2017-09-02] MEDS ORDERED: oxyCODONE/ACETAMINOPHEN 5 MG/325 MG TAB PO PRN (23:30)
[2017-09-02 23:44] VITALS: BP 154/73; PULSE 89; O2SAT 100
[2017-09-03] VITALS (15 sets, daily range): BP systolic 119–183; BP diastolic 60–96; PULSE 62–98; RESP 18–22; TEMP 97.6–99.4; O2SAT 94–99
[2017-09-03] MEDS ORDERED: SODIUM CHLORIDE 0.9% FLUSH 10 ML FLUSH IV FLUSH PRN (00:15)
[2017-09-03 00:36] LABS: BANDS 12 % (0-6); BASOPHILS 3 % (0-2); BLASTS 6 % (0-0); CORRECTED NUCLEATED RBC 2 /100 WBC (0-0); LYMPHOCYTES 18 % (9-44); METAMYELOCYTES 7 % (0-1); MONOCYTES 12 % (0-8); MYELOCYTES 20 % (0-0); NEUTROPHIL # MANUAL DIFF 2.7 TH/MM3 (1.8-7.7); NUCLEATED RED BLOOD CELL 2 (0-0); POLYS (SEG NEUTROPHILS) 17 % (16-70); PROMYELOCYTES 1 % (0-0)
[2017-09-03 00:42] LABS: OVALOCYTES 1+ (NORMAL)
[2017-09-03] MEDS ORDERED: DEXTROSE 50% IN WATER 50 ML VIAL(D50) IV PUSH PRN (00:45)
[2017-09-03] MEDS ORDERED: ENALAPRILAT 1.25 MG/ML VIAL IV PUSH PRN (00:45)
[2017-09-03] MEDS ORDERED: GLUCAGON 1 MG/ML VIAL OTHER PRN (00:45)
[2017-09-03] MEDS: METOPROLOL TARTRATE 25 MG TAB PO SCH ×2 (02:53→09:16)
[2017-09-03] MEDS ORDERED: VANCOMYCIN INJ 1,000 MG in SODIUM CHLOR 0.9% 250 ML INJ 250 ML IV ONE (04:45)
[2017-09-03] MEDS ORDERED: Vancomycin Consult Pharmacy 1 EA OTHER SCH (04:45)
[2017-09-03] MEDS ORDERED: VANCOMYCIN 1 GM/200 ML PREMIX IV ONE (05:00)
[2017-09-03] MEDS ORDERED: PIPERACIL-TAZO 4.5 GM PREMIX 100 ML IV SCH ×2 (06:00→15:00)
[2017-09-03] MEDS ORDERED: metroNIDAZOLE 500 MG INJ 100 ML IV SCH (07:00)
[2017-09-03 07:16] LABS: MEAN CELL VOLUME 86.3 FL (80.0-100.0); MEAN CORPUSCULAR HGB CONC 34.7 % (32.0-36.0); MEAN PLATELET VOLUME 8.5 FL (7.0-11.0); PLATELET COUNT 42 TH/MM3 (150-450); RED BLOOD COUNT 2.36 MIL/MM3 (4.00-5.30); RED CELL DISTRIBUTION WIDTH 15.1 % (11.6-17.2); WHITE BLOOD COUNT 5.6 TH/MM3 (4.0-11.0)
[2017-09-03 07:26] LABS: HEMATOCRIT 20.3 % (35.0-46.0); HEMOGLOBIN 7.1 GM/DL (11.6-15.3)
--- NOTE | 2017-09-03 07:28 | HHI.FPPN ---
Subjective Remarks Marie Lou is a 77yo lady with history significant for Myelodysplastic syndrome admitted for symptomatic anemia. She has been requiring frequent transfusions to treat her syndrome, and most recently was found to have a hemoglobin of 6.0 and platelets of 12 the day prior to admission. Associated with her low blood counts, she was having increasing SOB and fatigue, as reported by the nurses at her rehab center. For further details, please see resident H&P. Overnight, she received 1U PRBCs and 1 U platelets. This morning, she reports that she is feeling a little better, with some improvement in her fatigue. She does continue to have SOB. She denies chest pain or palpitations. ROS: + SOB, + fatigue (improving). No chest pain, no palpitations. All other systems reviewed are negative. PMH/PSxH/SocHx/FamHx: Per resident H&P. Significant for: Myelodysplastic syndrome followed by Dr. Norwood; chronic diastolic heart failure. HTN, DM II. H/ O esophageal dilatation, hysterectomy, back surgery and bilateral knee replacements. Father from stroke. Sibling with heart disease. Has been in nursing facility since June 2017. No alcohol, tobacco, or recreational drug use. Objective Vitals Vital Signs Date Time Temp Pulse Resp B/P (MAP) Pulse Ox O2 Delivery O2 Flow Rate FiO2 09/03/17 05:13 97.6 64 22 137/73 97 09/03/17 04:00 62 09/03/17 04:00 99.4 81 20 141/78 (99) 97 09/03/17 03:57 88 09/03/17 01:58 98.0 158/96 94 09/03/17 01:50 98.9 98 20 158/96 (116) 94 09/03/17 01:31 98.0 84 18 153/75 96 09/03/17 01:06 98.0 84 18 172/80 95 09/03/17 00:57 98.0 84 18 172/80 99 09/03/17 00:44 152/70 (97) 99 Nasal Cannula 4.00 09/02/17 23:44 89 154/73 (100) 100 Nasal Cannula 4.00 09/02/17 23:01 98.2 79 18 181/79 100 09/02/17 20:53 187/88 (121) 09/02/17 20:44 Nasal Cannula 4.00 09/02/17 20:44 99 Nasal Cannula 4.00 09/02/17 20:32 98.7 88 18 187/86 (119) 96 I/O 09/02/17 09/02/17 09/02/17 09/03/17 09/03/17 09/03/17 07:00 15:00 23:00 07:00 15:00 23:00 Intake Total 1715 ml Output Total 200 ml Balance 1515 ml Intake Oral 200 ml IV Total 160 ml Packed Cells 760 ml Platelets 215 ml Blood Product IV Normal Saline Flush 380 ml Output Urine Total 200 ml # Bowel Movements 0 Result Diagram: 09/03/1762909/02/172049 Objective Remarks GENERAL: in NAD, no resp distress, nontoxic. Sitting comfortably in chair. HEENT: EOMI, no scleral icterus, no conjunctival injection. Mucous membranes slightly dry. There is dried blood on lips and around gums, but no obvious active bleeding. NECK: Supple, no meningeal signs. CV: RRR, S1 S2. No murmurs. CHEST/PULM: CTAB, no crackles, no wheezes ABD/GI: +BS, soft, nontender, nondistended. EXT: 3-4+ edema to thighs. No calf tenderness. No erythema. NEURO: Awake, alert. Normal muscle tone. SKIN: Scattered bruises throughout. No jaundice. PSYCH: Mood and affect are appropriate. Seems slightly confused. A/P Assessment and Plan 69-year-old female, past medical history of myelodysplastic syndrome, presents with symptomatic anemia and hemoglobin of 6. Discharge Planning Family requests hospice consult. If able to arrange, may be discharged to hospice care center today. Attending Attestation Patient seen, examined, and discussed with resident team. The patient has been seen and examined. The chart and all resident notes have been reviewed. I agree that inpatient care is appropriate and that a two midnight stay is expected for the reasons documented in the resident history and physical. I have discussed this with the resident and certify the resident s order for inpatient admission. Problem List: (1) Myelodysplasia (myelodysplastic syndrome) ICD Codes: D46.9 - Myelodysplastic syndrome, unspecified Status: Acute Plan: Severe MDS, possible progression to acute myelogenous leukemia. Appreciate Dr. Norwood, who has discussed treatment options with patient and daughter. Anticipate possible transition to hospice/supportive care today. Overnight, pt received 1U PRBCs and 1U platelets. Dr. Norwood has ordered an additional unit of PRBCs this morning. (2) Pulmonary infiltrates on CXR ICD Codes: R91.8 - Other nonspecific abnormal finding of lung field Status: Acute Plan: Pulmonary edema vs pneumonia vs other. Pt currently treated for pneumonia with the following antibiotic regimen: Vancomycin 09/03/17 --> Zosyn 09/03/17 --> Azithromycin 09/03/17 --> Flagyl 09/03/17--> 09/03/17 (stopped due to passing swallow study; no overt signs of aspiration) Check urine studies for causes of pneumonia, as well as flu Ag. Blood cultures pending. Repeat CXR (PA and lateral) today. Continue IV diuretics for pulmonary edema. Monitor Is/Os. (3) Congestive heart failure ICD Codes: I50.9 - Heart failure, unspecified Status: Chronic Plan: Suspect pulmonary edema seen on CXR. Per previous admission, CHF with diastolic dysfunction Echocardiogram 01/2017: EF 55-60% BNP elevated to 294, from 167 on07/19 Chest x-ray: Bibasilar opacities, cardiomegaly, central pulmonary vascular congestion - Confirmed with radiologist overnight, indicative of fluid overload and CHF - Repeat CXR pending as above. Fluid restriction to 1500 mL Patient to sit up in bed or chair with legs hanging down Strict I's and O's Daily weights Heart healthy diet Follow up echo Follow-up troponins Follow up EKGs Diuresis with Lasix 40 IV twice a day (4) Atypical chest pain ICD Codes: R07.89 - Other chest pain Status: Resolved Plan: Chest pain has resolved after receiving 1U PRBCs. D Dimer is elevated, but likely due to disease and transfusions. Given platelet count, unable to anticoagulate anyway. (5) Hypertension ICD Codes: I10 - Essential (primary) hypertension Status: Chronic Plan: Pt with PMH significant for HTN. Use PRN medication as ordered. BP remains stable. (6) Pre-diabetes ICD Codes: R73.09 - Other abnormal glucose Status: Acute Plan: Follow-up blood sugars Follow up hemoglobin A1c Cover with low-dose insulin sliding scale as needed. (7) Atrial fibrillation ICD Codes: I48.91 - Unspecified atrial fibrillation Status: Chronic Plan: Pt with known h/o A fib. Despite CHADS-VASc of 5, unable to anticoagulate due to myelodysplasia and platelets of 12. (8) Anxiety and depression ICD Codes: F41.9 - Anxiety disorder, unspecified; F32.9 - Major depressive disorder, single episode, unspecified Status: Acute Plan: Continue home medications (9) Acute kidney injury ICD Codes: N17.9 - Acute kidney failure, unspecified Status: Acute Plan: Acute vs chronic. Creatinine 1.44 on admission, from 1.5 in July Last normal creatinine was in May 2017, at 0.90 Dehydration versus chronic kidney disease versus PARTH Continue cautious IV fluid hydration, in light of known CHF Problem Qualifiers (1) Congestive heart failure: Qualified Codes: I50.32 - Chronic diastolic (congestive) heart failure (2) Hypertension: Qualified Codes: I10 - Essential (primary) hypertension (3) Atrial fibrillation: Qualified Codes: I48.2 - Chronic atrial fibrillation Michell Pope MD Sep 03, 2017 07:28
[2017-09-03] MEDS ORDERED: ACETAMINOPHEN 325 MG TAB PO PRN (07:45)
[2017-09-03] MEDS ORDERED: diphenhydrAMINE HCL 25 MG CAP PO PRN (07:45)
[2017-09-03] MEDS ORDERED: SODIUM CHLOR 0.9% 250 ML INJ 250 ML IV ONE (07:45)
[2017-09-03] MEDS: INSULIN ASPART SUPPLEMENTAL SCALE SQ SCH ×3 (08:00→17:00)
[2017-09-03] MEDS ORDERED: AZITHROMYCIN INJ 500 MG in SODIUM CHLOR 0.9% 250 ML INJ 250 ML IV SCH (08:00)
--- NOTE | 2017-09-03 08:13 | EKG ---
Date Performed: 09/02/2017 Time Performed: 20:51:19 PTAGE: 77 years EKG: ATRIAL FIBRILLATION LOW QRS VOLTAGE IN PRECORDIAL LEADS Cannot rule out SEPTAL MYOCARDIAL I NFARCTION ABNORMAL ECG No significant change from prior electrocardiogram. PREVIOUS TRACING : 07/22/2017 15.14 DOCTOR: Aneesh Santos Interpretating Date/Time 09/03/2017 08:12:45
--- NOTE | 2017-09-03 08:30 | MB ---
cc: YANY EASTON MD DATE OF CONSULTATION 09/03/2017 DATE OF 08/24/1939 Time of consultation is 07:15 a.m. REASON FOR CONSULTATION Critical anemia and severe thrombocytopenia in a patient with myelodysplastic syndrome with possible progression to acute myeloid leukemia. CHIEF COMPLAINT Ms. Lou reports being transferred to the [facility] emergency department from her assisted facility for management of critical anemia. She reports feeling generally tired, but this is her baseline. HISTORY OF PRESENT ILLNESS Ms. Lou is a 77-year-old female with a diagnosis of myelodysplastic syndrome with a high myeloid blasts count. 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 Mr. Lou has followed with me in my outpatient clinic for supportive transfusions. In the past, we have discussed the role of systemic therapy with a hypo-methylating agent such as Vidaza to help control her MDS and also to help reduce her transfusion requirements. She declined in favor of supportive transfusions alone. We have also, in the past, talked about Hospice level of care which she declined initially. The patient was transferred from her assisted facility yesterday night after CBC revealed a hemoglobin of 6 gm/dl. She had been scheduled for outpatient transfusion today but her longterm decided instead to send her to [facility]. Overnight she was transfused one unit of packed red blood cells for a hemoglobin of 6 gm/dl and one unit pooled platelets for a platelet count 17,000. The patient denies overt bleeding. PAST MEDICAL HISTORY 1. 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 2. Atrial fibrillation 3. CHF 4. COPD 5. Hypertension 6. Anasarca 7. Adult failure to thrive PAST SURGICAL HISTORY 1. Appendectomy 2. Bilateral knee surgery 3. Bone marrow aspiration and biopsy 4. Cholecystectomy 5. Tonsillectomy 6. Hysterectomy ALLERGIES TYLENOL, FENTANYL, SEROQUEL, SULFA DRUGS AND VICODIN. SOCIAL HISTORY The patient is , she lives in a assisted facility. Prior to that, she lived at home alone. She has two daughters who are adults. CURRENT INPATIENT MEDICATIONS 1. Azithromycin 500 mg IV q.24 h 2. Metronidazole 500 mg p.o. q.8 h. 3. Zosyn 4.5 grams IV q.6 h 4. Vancomycin 1500 mg IV q.24 h 5. Citalopram 20 mg p.o. daily 6. Clonazepam 0.5 mg p.o. twice a day 7. Enalaprilat 1.25 mg IV q.6 h. 8. Lasix 40 mcg IV twice daily 9. Gabapentin 300 mg p.o. q.h.s. 10. NovoLog insulin sliding scale per protocol q.h.s. and a.c. 11. Metoprolol 25 mg p.o. b.i.d. 12. Morphine sulfate long-acting 30 mg p.o. twice daily. 13. Oxycodone/acetaminophen 5/325 one tablet p.o. t.i.d. 14. Pantoprazole 20 mg once daily 15. Potassium chloride 20 mEq p.o. b.i.d. REVIEW OF SYSTEMS A 13-point review of systems is obtained. The following are the pertinent positives and negatives: CONSTITUTIONAL: The patient reports fatigue, weakness, loss of appetite. She denies having had fevers or chills. HEENT: Denies headaches, reports blurry vision, denies difficulty swallowing. RESPIRATORY: Reports difficulty breathing at times at rest. She tells me she is not able to move or ambulate much and therefore does not experience difficulty breathing with exertion. CARDIOVASCULAR: Denies angina-like chest pain, PND, orthopnea, reports history of CHF and atrial fibrillation. GI: Denies nausea, vomiting, diarrhea, hematochezia or melena. She does report having a history of loss of appetite. EXTREMITIES: Lower extremities, chronic edema. : Denies dysuria, hematuria, urinary incontinence. FERMENTING CELLARS RECEIVER: Feels generally weak but denies focal or sensory motor deficits. PHYSICAL EXAMINATION VITAL SIGNS: Temperature 97.6 degrees Fahrenheit, heart rate 64 beats per minute, respiratory rate 22, blood pressure is 137/73, O2 sats 97% on room air. GENERAL PHYSICAL APPEARANCE: Mr. Lou is an elderly and frail-appearing female, she appears to be chronically ill. She is awake and alert and talks to me in full sentences. HEENT: Head is atraumatic, normocephalic, conjunctive are pale, sclerae are anicteric, EOMI, PERRLA, oral exam, no pharyngeal erythema. NECK: No palpable cervical or supraclavicular lymphadenopathy. RESPIRATORY: Good air movement bilaterally. No added breath sounds. CARDIOVASCULAR: Irregular rhythm, S1-S2. No obvious murmurs, rubs or gallops. ABDOMEN: Protuberant/obese belly, soft, nontender, no palpable organ enlargement specifically no hepatosplenomegaly. EXTREMITIES: Lower extremities, bilateral pitting edema all the way up to the thighs. SKIN: Scattered bruising over the arms. No active bleeding noted. FERMENTING CELLARS RECEIVER: Generally weak, but no focal sensory motor deficits. LABORATORY FINDINGS Blood work dated 09/03/2017: WBC count 5.6, hemoglobin 7.1 gm/dl, hematocrit 20.3%, platelet counts 42,000. Manual differential performed on 09/02/2017 indicates metamyelocytes a 7%, myelocytes of 20%, blast cells and 6%. Chemistries dated 09/02/2017: Sodium 137, potassium 3.5, chloride 99, bicarb 33, BUN 27, creatinine 1.44, EGFR 35 mL/minute, sodium 131, calcium 8.3, magnesium 2.3, total bilirubin 1.5, AST 15, ALT 6, alkaline phosphatase 66, BNP 295, albumin is 3. ASSESSMENT Ms. Lou is a 77-year-old female with a diagnosis of myelodysplastic syndrome associated with excess blasts (16% in the bone marrow), her disease is associate with complex cytogenetics and based on initial bone marrow biopsy performed I believe in June of 2017 at [facility], there was some suspicion that her disease may be progressing to acute myeloid leukemia. The patient has been under my care since July of 2017. In the past, I had discussed at length with her and her daughter the role of disease modifying therapy with a hypo-methylating agent such as Vidaza to help delay progression to acute myeloid leukemia and to help decrease her transfusion requirements. All-in-all, I did explain to the patient that her disease was not curable and associated with a very poor prognosis based on the complex cytogenetics. Various treatment approaches were laid out for her. The approaches included treatment with Vidaza as aggressive disease directed therapy, supportive transfusions alone or Hospice level of care for comfort measures. The patient and her daughter, after much contemplation, selected a best supportive care approach in which they would have weekly blood work done on the patient with outpatient transfusions. Over the past several weeks, this has worked reasonably well in which my clinic would coordinate outpatient transfer to the oncology clinic for infusions. Last night after a CBC result revealed a hemoglobin of 6 gm/dl, the patient's nursing facility transferred the patient directly to the emergency department. She had been scheduled to receive red cell transfusion at my clinic today. At any rate, she is in the hospital now and I have been asked to see her. She feels better after the transfusion. RECOMMENDATIONS Myelodysplastic syndrome with high-risk characteristics: I would recommend one additional unit of packed red blood cells. After this, she may be transferred back to her nursing facility. I would like to me with the patient and her daughter tomorrow in my clinic where we will talk about with goals of care going forward and possible transition to palliative care/Hospice. If the patient remains at this facility beyond today, I can meet with them later tonight or tomorrow to discuss palliation. MD ADI Larson/BALBIR /7:38 AM /7:54 AM
[2017-09-03] MEDS ORDERED: PANTOPRAZOLE SOD 20 MG DELAYED RELEASE TAB PO SCH (09:00)
[2017-09-03] MEDS ORDERED: POTASSIUM CHLORIDE 20 MEQ CONTROLLED RELEASE TAB PO SCH (09:00)
[2017-09-03] MEDS ORDERED: CITALOPRAM HYDROBROMIDE 20 MG TAB PO SCH (09:00)
[2017-09-03] MEDS ORDERED: SODIUM CHLORIDE 0.9% FLUSH 10 ML FLUSH IV FLUSH SCH (09:00)
[2017-09-03] MEDS: MORPHINE SULFATE 15 MG CONTROLLED RELEASE TAB PO SCH ×2 (09:17→20:00)
[2017-09-03] MEDS: clonazePAM 0.5 MG TAB PO SCH ×2 (09:17→19:59)
[2017-09-03] MEDS: FUROSEMIDE 40 MG/4 ML VIAL IVP SCH ×2 (09:18→17:26)
[2017-09-03 09:59] LABS: BANDS 1 % (0-6); BLASTS 1 % (0-0); CORRECTED NUCLEATED RBC 3 /100 WBC (0-0); LYMPHOCYTES 62 % (9-44); MONOCYTES 6 % (0-8); MYELOCYTES 13 % (0-0); NEUTROPHIL # MANUAL DIFF 1.5 TH/MM3 (1.8-7.7); NUCLEATED RED BLOOD CELL 3 (0-0); OVALOCYTES 1+ (NORMAL); POLYS (SEG NEUTROPHILS) 12 % (16-70)
[2017-09-03] MEDS ORDERED: VANCOMYCIN 500 MG/NS 100 ML IV ONE ×2 (10:00)
[2017-09-03] MEDS ORDERED: LACTOBACILLUS ACIDOPHILUS TAB PO SCH (10:30)
[2017-09-03 11:14] LABS: ALT (GPT) 8 U/L (10-53); AST (GOT) 17 U/L (15-37); BLOOD UREA NITROGEN 25 MG/DL (7-18); CHLORIDE 99 MEQ/L (98-107); GLOMERULAR FILTRATION RATE 36 ML/MIN (>89); GLUCOSE,RANDOM 101 MG/DL (74-106); MAGNESIUM 2.1 MG/DL (1.5-2.5); SODIUM (NA) 140 MEQ/L (136-145)
[2017-09-03 11:17] LABS: ALKALINE PHOSPHATASE 64 U/L (45-117); TOTAL PROTEIN 6.9 GM/DL (6.4-8.2); TROPONIN I 0.02 NG/ML (0.02-0.05)
--- NOTE | 2017-09-03 13:54 | EKG ---
Date Performed: 09/03/2017 Time Performed: 03:42:54 PTAGE: 77 years EKG: Atrial fibrillation Possible anteroseptal infarct - age undetermined Inferior/lateral T wav e changes are nonspecific Low QRS voltages in precordial leads Abnormal ECG No significant change fro m prior electrocardiogram. DOCTOR: Aneesh Santos Interpretating Date/Time 09/03/2017 13:53:25
[2017-09-03 16:34] LABS: HEMOGLOBIN A1C 6.4 % (4.3-6.0)
[2017-09-03] MEDS ORDERED: GABAPENTIN 300 MG CAP PO SCH (21:00)
[2017-09-04] MEDS ORDERED: VANCOMYCIN INJ 1,500 MG in SODIUM CHLORID 0.9% 500 ML INJ 500 ML IV SCH (05:00)
[2017-09-06] MEDS ORDERED: PHARMACY ORDERED LAB ONE (04:45)
== END 2017-09-03 21:15 | disposition hospice, inpatient (51) | DRG 834 ==
LOC: NEPC 20:23 → NEDA 22:44 → N04B 09-03 01:55
PROVIDERS: ADMIT Family Medicine; ATTEND Family Medicine
PROC: 6A550Z2 Pheresis of Platelets, Single (ICD-10-PCS; 2017-09-02)
PROC: 30233N1 Transfusion of Nonautologous Red Blood Cells into Peripheral Vein, Percutaneous Approach (ICD-10-PCS; principal; 2017-09-03)
DX: C92.00 Acute myeloblastic leukemia, not having achieved remission (principal); J18.9 Pneumonia, unspecified organism; N17.9 Acute kidney failure, unspecified; I11.0 Hypertensive heart disease with heart failure; D69.6 Thrombocytopenia, unspecified; I50.32 Chronic diastolic (congestive) heart failure; I48.2 Chronic atrial fibrillation; D63.8 Anemia in other chronic diseases classified elsewhere; J44.9 Chronic obstructive pulmonary disease, unspecified; I89.0 Lymphedema, not elsewhere classified; K21.9 Gastro-esophageal reflux disease without esophagitis; R73.03 Prediabetes; E66.9 Obesity, unspecified; F32.9 Major depressive disorder, single episode, unspecified; F41.9 Anxiety disorder, unspecified; Z51.5 Encounter for palliative care; Z66 Do not resuscitate; Z68.38 Body mass index [BMI] 38.0-38.9, adult; Z88.2 Allergy status to sulfonamides; Z88.5 Allergy status to narcotic agent; Z88.6 Allergy status to analgesic agent; Z96.653 Presence of artificial knee joint, bilateral
CPT/HCPCS: 36430; 71045; 80053; 81001; 82550; 82948; 83036; 83605; 83735; 83880; 84484; 85007; 85027; 85379; 85610; 85730; 86850; 86900; 86901; 86920; 87040; 93005; 99285; J1940; J2543; J3370; J7050; P9016; P9035